=== PATIENT | male | born 1990 | race Caucasian/White ===

== ENCOUNTER 2016-12-21 21:19 | Emergency (ER) | payer SELFPAY ==
[~2016-12-21] VITALS: Ht 188 cm; Wt 128.4 kg
[~2016-12-21 21:19] MED LIST: LISI-556 PO
[2016-12-21] MEDS ORDERED: KETOROLAC 30 MG/ML VIAL IVP STA (22:31)
[2016-12-21] MEDS ORDERED: LACTATED RINGERS 1,000 ML IV ONE (22:31)
[2016-12-21 22:33] LABS: BILIRUBIN,URINE NEGATIVE (NEGATIVE); KETONES,URINE NEGATIVE (NEGATIVE); LEUKOCYTE ESTERASE ,URINE 1+ (NEGATIVE); NITRITE,URINE NEGATIVE (NEGATIVE); PH,URINE 5 (5-9); PROTEIN,URINE 2+ (NEGATIVE); UROBILINOGEN,URINE NORMAL (NORMAL)
[2016-12-21 22:44] LABS: WBC,URINE 0-2 /HPF
[2016-12-21] MEDS ORDERED: ONDANSETRON 4 MG/2 ML (SDV) Z0FRAN IVP ONE (22:45)
[2016-12-21 22:47] LABS: BASOPHILS % (AUTO) 0 % (0-10); EOSINOPHILS # (AUTO) 0.2 10^3/uL (0.0-0.3); EOSINOPHILS % (AUTO) 1 % (0-10); LYMPHOCYTES # (AUTO) 3.2 X 10^3 (1.0-4.0); LYMPHOCYTES % (AUTO) 23 % (12-44); MEAN CORPUSCULAR HEMOGLOBIN 29 PG (25-34); MEAN CORPUSCULAR HGB CONC 35 G/DL (32-36); MEAN CORPUSCULAR VOLUME 84 FL (80-99); MEAN PLATELET VOLUME 11.1 FL (7.4-10.4); MONOCYTES # (AUTO) 0.9 X 10^3 (0.0-1.0); MONOCYTES % (AUTO) 6 % (0-12); NEUTROPHILS # (AUTO) 9.5 X 10^3 (1.8-7.8); NEUTROPHILS % (AUTO) 69 % (42-75); PLATELET COUNT 209 10^3/uL (130-400); RED BLOOD COUNT 5.38 10^6/uL (4.35-5.85); RED CELL DISTRIBUTION WIDTH 13.1 % (10.0-14.5); WHITE BLOOD COUNT 13.8 10^3/uL (4.3-11.0)
[2016-12-21 23:04] LABS: ALANINE AMINOTRANSFERASE 42 U/L (0-55); ALBUMIN 4.1 GM/DL (3.2-4.5); AMYLASE 46 U/L (25-125); ANION GAP 11 MMOL/L (5-14); ASPARTATE AMINO TRANSFERASE 30 U/L (5-34); BILIRUBIN,TOTAL 0.4 MG/DL (0.1-1.0); BLOOD UREA NITROGEN 10 MG/DL (7-18); BUN/CREATININE RATIO 11 (0-20); CALCIUM 9.6 MG/DL (8.5-10.1); CARBON DIOXIDE 23 MMOL/L (21-32); CHLORIDE 109 MMOL/L (98-107); CREATININE SERUM 0.87 MG/DL (0.60-1.30); GFR ESTIMATED > 60; GLUCOSE 99 MG/DL (70-105); HEMOLYSIS 7 (-100-29); ICTERUS 0.4 (-100-1.9); LIPASE 15 U/L (8-78); LIPEMIA 5 (-100-49); POTASSIUM 3.6 MMOL/L (3.6-5.0); SODIUM 143 MMOL/L (135-145); TOTAL PROTEIN 7.5 GM/DL (6.4-8.2)
[2016-12-21] MEDS ORDERED: RX-ONDANSETRON 4 MG ODT (ZOFRAN) PPK #4 PO STA (23:39)
[2016-12-21] MEDS ORDERED: TAMS0.4C98 PO (23:43)
[2016-12-21] MEDS ORDERED: HYDR-3820 PO (23:43)
[2016-12-21] MEDS ORDERED: ONDA4TAB8 PO (23:43)
[2016-12-21] MEDS ORDERED: CIPR-225 PO (23:43)
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
[2016-12-21] MEDS ORDERED: CIPROFLOXACIN 500 MG (CIPRO) TABLET PO SCH (23:45)
[2016-12-21] MEDS ORDERED: ALFUZOSIN HCL 10 MG TAB (UROXATRAL) PO SCH (23:45)
[2016-12-21] MEDS ORDERED: RX-HYDROCODONE/APAP 5/325 MG #4 TAB PK PO PRN (23:45)
[2016-12-21 23:54] VITALS: BP 124/95
--- NOTE | 2016-12-22 07:50 | Diagnostic Imaging Report ---
INDICATION: Right-sided abdominal and back pain. TECHNIQUE: Single view chest with supine and upright radiographs of the abdomen. CORRELATION STUDY: None FINDINGS: Frontal radiograph of the chest demonstrates no acute abnormality. At approximately 6 x 4 mm calcification interposed between the of right L4 and L5 transverse processes. Overlying bowel gas and stool is present may affect mild ileus pattern but without findings to suggest high degree of bowel obstruction. No difference in air-fluid levels. IMPRESSION: 1. Negative for acute cardiopulmonary abnormality. 2. Calcification along the right paraspinal region consistent with the known right ureteral stone demonstrated on followup renal colic CT. Dictated by: Dictated on workstation # [id number]
--- NOTE | 2016-12-22 07:55 | Diagnostic Imaging Report ---
PROCEDURE: CT urinary tract, rule out kidney stone. TECHNIQUE: Multiple contiguous axial images were obtained through the abdomen and pelvis without the use of intravenous contrast. INDICATION: Right lower quadrant abdominal and back pain. CORRELATION STUDY: None. FINDINGS: LOWER THORAX: Clear. LIVER: Unremarkable. GALLBLADDER: Present and unremarkable. No bile duct dilatation. SPLEEN: Unremarkable. PANCREAS: Unremarkable. ADRENAL GLANDS: Unremarkable. KIDNEYS: There is moderate severity right-sided hydroureteronephrosis owing to an approximately 6 x 6 mm stone within the right mid ureter. This is at the approximately L4 vertebral body plain. At least two punctate nonobstructing superior pole left renal calculi are present with left renal collecting system unremarkable. ABDOMINAL AORTA: Unremarkable, nonaneurysmal. GASTROINTESTINAL TRACT: No obstruction or inflammation. Normal appendix. URINARY BLADDER: Relatively decompressed and therefore not well evaluated. REPRODUCTIVE: Prostate gland appearing unremarkable. OSSEOUS STRUCTURES: Mild vertebral body endplate irregularities, few small Schmorl's nodes present. IMPRESSION: 1. Moderate right-sided hydroureteronephrosis owing to approximately 6 mm stone in the right mid ureter. 2. Punctate nonobstructing left intrarenal calculi. Dictated by: Dictated on workstation # [id number]
== END 2016-12-21 23:54 | disposition home or self-care (01) ==
LOC: EDUNIT# 21:19 → ER 21:24
DX: N13.2 Hydronephrosis with renal and ureteral calculous obstruction (principal); F17.210 Nicotine dependence, cigarettes, uncomplicated; Z87.442 Personal history of urinary calculi
CPT/HCPCS: 36415; 74022; 74176; 80053; 81000; 82150; 83690; 85025

== ENCOUNTER 2018-12-20 22:37 | Emergency (ER) | payer BC, OTHER ==
[~2018-12-20] VITALS: Ht 188 cm; Wt 140.6 kg
[~2018-12-20 22:37] MED LIST changes: +CIPR-225 PO; +HYDR-3820 PO; +ONDA4TAB8 PO; +TAMS0.4C98 PO
--- NOTE | 2018-12-20 22:46 | ED General ---
General Stated Complaint: PRESSURE ON HEAD, SOB, DIZZY History of Present Illness Date Seen by Provider: Dec 20, 2018 Time Seen by Provider: 22:45 Initial Comments Patient presenting to the emergency department for evaluation of altered gait sensation started approximately 6 PM tonight. He says he was lying down and started not feeling right with an odd disequilibrium sensation that he went to the shower and fell forward but was able to catch himself before he smacked his head. He has been feeling a pressure sensation on the right side of his head and a sensation that he cannot ambulate effectively as he feels as if he is drunk. He can control his feet but feels off balance as he has his arms out besides holding onto objects while he is walking. He denies any recent trauma or overuse and he denies any room spinning sensation. He denies sinus congestion or ear pain but says that he has some tinnitus. He says he used to have hypertension but no longer is treated for hypertension. He denies diabetes high cholesterol or smoking cigarettes. He says he chews tobacco. He is in no obvious distress but is quite hypertensive. Allergies and Home Medications Allergies Coded Allergies: No Known Drug Allergies (Unverified , 07/21/15) Home Medications Ciprofloxacin HCl 500 Mg Tablet, 500 MG PO BID Prescribed by: DOT FORREST on 12/21/162342 Hydrocodone/Acetaminophen 1 Each Tablet, 1 EACH PO Q4H Prescribed by: DOT FORREST on 12/21/162342 Ondansetron 4 Mg Tab.rapdis, 4 MG PO Q4H Prescribed by: DOT FORREST on 12/21/162342 Tamsulosin HCl 0.4 Mg Cap, 0.4 MG PO DAILY Prescribed by: DOT FORREST on 12/21/162342 Patient Home Medication List Home Medication List Reviewed: Yes Review of Systems Review of Systems Constitutional: no symptoms reported EENTM: no symptoms reported Respiratory: no symptoms reported Cardiovascular: no symptoms reported Gastrointestinal: no symptoms reported Musculoskeletal: no symptoms reported Skin: no symptoms reported Psychiatric/Neurological: Depressed, Headache All Other Systems Reviewed Negative Unless Noted: Yes Past Hnqmdou-Ieckol-Waregd Hx Patient Social History Alcohol Beverage of Choice: Rum Type Used: Cigarettes 2nd Hand Smoke Exposure: Yes Recent Foreign Travel: No Contact w/Someone Who Travel: No Recent Hopitalizations: No Immunizations Up To Date Tetanus Booster (TDap): Unknown PED Vaccines UTD: Yes Seasonal Allergies Seasonal Allergies: No Past Medical History Surgeries: Yes (jaw, ) Orthopedic, Renal Respiratory: No Cardiac: Yes Hypertension Neurological: No Reproductive Disorders: No Genitourinary: No Kidney Stones Gastrointestinal: No Musculoskeletal: No Endocrine: No HEENT: No Cancer: No Psychosocial: No Integumentary: No Blood Disorders: No Physical Exam Vital Signs Vital Signs - First Documented 12/20/18 22:55 Temp 97.8 Pulse 93 Resp 15 B/P (MAP) 173/112 (132) Pulse Ox 98 O2 Delivery Room Air Capillary Refill : Height, Weight, BMI Height: 6'2.00" Weight: 283lbs. oz. 128.216467lc; BMI Method:Stated General Appearance: No Apparent Distress, WD/WN HEENT: PERRL/EOMI, TMs Normal, Pharynx Normal Neck: Supple Respiratory: No Respiratory Distress Cardiovascular: Regular Rate, Rhythm Gastrointestinal: Non Tender, Soft Back: Normal Inspection Extremity: Normal Capillary Refill Neurologic/Psychiatric: Alert, Oriented x3, No Motor/Sensory Deficits, Abnormal Gait, Other (normal finger to nose. ) Skin: Normal Color, Warm/Dry Progress/Results/Core Measures Suspected Sepsis SIRS Temperature: Pulse: Respiratory Rate: Laboratory Tests 12/20/18 23:10: White Blood Count 9.5 Blood Pressure / Mean: Laboratory Tests 12/20/18 23:10: Creatinine 0.89, Platelet Count 207, Total Bilirubin 0.4 Results/Orders Lab Results Laboratory Tests Test 12/20/18 23:10 Range/Units White Blood Count 9.5 4.3-11.0 10^3/uL Red Blood Count 5.47 4.35-5.85 10^6/uL Hemoglobin 16.1 13.3-17.7 G/DL Hematocrit 48 40-54 % Mean Corpuscular Volume 87 80-99 FL Mean Corpuscular Hemoglobin 29 25-34 PG Mean Corpuscular Hemoglobin Concent 34 32-36 G/DL Red Cell Distribution Width 12.6 10.0-14.5 % Platelet Count 207 130-400 10^3/uL Mean Platelet Volume 10.8 H 7.4-10.4 FL Neutrophils (%) (Auto) 57 42-75 % Lymphocytes (%) (Auto) 34 12-44 % Monocytes (%) (Auto) 8 0-12 % Eosinophils (%) (Auto) 1 0-10 % Basophils (%) (Auto) 0 0-10 % Neutrophils # (Auto) 5.4 1.8-7.8 X 10^3 Lymphocytes # (Auto) 3.2 1.0-4.0 X 10^3 Monocytes # (Auto) 0.7 0.0-1.0 X 10^3 Eosinophils # (Auto) 0.1 0.0-0.3 10^3/uL Basophils # (Auto) 0.0 0.0-0.1 10^3/uL Sodium Level 142 135-145 MMOL/L Potassium Level 3.7 3.6-5.0 MMOL/L Chloride Level 104 98-107 MMOL/L Carbon Dioxide Level 25 21-32 MMOL/L Anion Gap 13 5-14 MMOL/L Blood Urea Nitrogen 10 7-18 MG/DL Creatinine 0.89 0.60-1.30 MG/DL Estimat Glomerular Filtration Rate > 60 BUN/Creatinine Ratio 11 Glucose Level 115 H 70-105 MG/DL Calcium Level 9.3 8.5-10.1 MG/DL Corrected Calcium 9.1 8.5-10.1 MG/DL Total Bilirubin 0.4 0.1-1.0 MG/DL Aspartate Amino Transf (AST/SGOT) 20 5-34 U/L Alanine Aminotransferase (ALT/SGPT) 25 0-55 U/L Alkaline Phosphatase 107 40-136 U/L Total Protein 7.5 6.4-8.2 GM/DL Albumin 4.3 3.2-4.5 GM/DL My Orders Orders - KERI HERR DO Cbc With Automated Diff (12/20/18 23:01) Comprehensive Metabolic Panel (12/20/18 23:01) Ct Head Wo (12/20/18 23:01) Meclizine Tablet (Antivert Tablet) (12/20/18 23:15) Labetalol Injection (Normodyne Injection (12/20/18 23:15) Aspirin Chewable Tablet (Baby Aspirin Ch (12/20/18 23:45) Vital Signs/I&O 12/20/18 22:55 Temp 97.8 Pulse 93 Resp 15 B/P (MAP) 173/112 (132) Pulse Ox 98 O2 Delivery Room Air Capillary Refill : Progress Note : Progress Note Patient was given meclizine and had labs and CT done. Unfortunately his altered gait has not improved. This could be a peripheral etiology to his altered gait however given his tobacco use quite elevated blood pressure cerebellar ischemia is somewhat of a concern given his intractable symptoms. Given patient has intractable symptoms and has risk factors for ischemia I recommended transfer to a facility for further neurologic workup. I spoke to Dr. AVALOS at [facility] and he says that they do not have neurology coverage and cannot accept him there. Patient is requesting transfer to [facility] as that is where his father goes. I recommended EMS transfer however patient refused. I told him he could decompensate and suffer or disability. Patient verbalized understanding and accepted these risks. Patient accepted by Dr. Gary at [facility]. Departure Impression Primary Impression: Hypertension Qualified Codes: I10 - Essential (primary) hypertension Additional Impression: Altered gait Disposition: 02 XFER SHT-TRM HOSP Condition: Unchanged Transfer Method of Transfer: Private Vehicle (patient request) Departure-Patient Inst. Referrals: NO,LOCAL PHYSICIAN (PCP/Family) Primary Care Physician KERI HERR DO Dec 20, 2018 22:46
[2018-12-20] MEDS ORDERED: MECLIZINE 25 MG (ANTIVERT) TAB PO ONE (23:15)
[2018-12-20] MEDS ORDERED: LABETALOL HCL 20 MG/4 ML VIAL IV ONE (23:15)
[2018-12-20 23:22] LABS: BASOPHILS % (AUTO) 0 % (0-10); EOSINOPHILS # (AUTO) 0.1 10^3/uL (0.0-0.3); EOSINOPHILS % (AUTO) 1 % (0-10); HEMATOCRIT 48 % (40-54); HEMOGLOBIN 16.1 G/DL (13.3-17.7); LYMPHOCYTES # (AUTO) 3.2 X 10^3 (1.0-4.0); LYMPHOCYTES % (AUTO) 34 % (12-44); MEAN CORPUSCULAR HEMOGLOBIN 29 PG (25-34); MEAN CORPUSCULAR HGB CONC 34 G/DL (32-36); MEAN CORPUSCULAR VOLUME 87 FL (80-99); MEAN PLATELET VOLUME 10.8 FL (7.4-10.4); MONOCYTES # (AUTO) 0.7 X 10^3 (0.0-1.0); MONOCYTES % (AUTO) 8 % (0-12); NEUTROPHILS # (AUTO) 5.4 X 10^3 (1.8-7.8); NEUTROPHILS % (AUTO) 57 % (42-75); PLATELET COUNT 207 10^3/uL (130-400); RED CELL DISTRIBUTION WIDTH 12.6 % (10.0-14.5); WHITE BLOOD COUNT 9.5 10^3/uL (4.3-11.0)
[2018-12-20 23:37] LABS: ALANINE AMINOTRANSFERASE 25 U/L (0-55); ALBUMIN 4.3 GM/DL (3.2-4.5); ALKALINE PHOSPHATASE 107 U/L (40-136); BILIRUBIN,TOTAL 0.4 MG/DL (0.1-1.0); BUN/CREATININE RATIO 11; CALCIUM 9.3 MG/DL (8.5-10.1); CARBON DIOXIDE 25 MMOL/L (21-32); CHLORIDE 104 MMOL/L (98-107); CREATININE SERUM 0.89 MG/DL (0.60-1.30); GFR ESTIMATED > 60; GLUCOSE 115 MG/DL (70-105); POTASSIUM 3.7 MMOL/L (3.6-5.0); SODIUM 142 MMOL/L (135-145); TOTAL PROTEIN 7.5 GM/DL (6.4-8.2)
[2018-12-20] MEDS ORDERED: ASPIRIN 81 MG CHEW (CHILDREN'S ASA) PO ONE (23:45)
[2018-12-21 00:24] VITALS: BP 140/101
--- NOTE | 2018-12-21 07:18 | Diagnostic Imaging Report ---
PROCEDURE: CT head without contrast. TECHNIQUE: Multiple contiguous axial images were obtained through the brain without the use of intravenous contrast. Auto Exposure Controls were utilized during the CT exam to meet ALARA standards for radiation dose reduction. INDICATION: Syncope, dizziness, gait change. COMPARISON: 07/21/2015 FINDINGS: There is no midline shift or mass effect. The ventricles and sulci are unremarkable. No evidence for acute intracranial hemorrhage, abnormal extra-axial fluid collections or cerebral edema is present. The basilar cisterns are unremarkable. The bony calvarium is intact. The visualized paranasal sinuses and mastoid air cells are clear. IMPRESSION: Negative appearing noncontrast CT of the head. A preliminary report was provided by [facility]. Dictated by: Dictated on workstation # [id number]
== END 2018-12-21 00:24 | disposition short-term general hospital (02) ==
LOC: EDUNIT# 22:37 → ER FS 22:38
DX: I10 Essential (primary) hypertension (principal); R26.9 Unspecified abnormalities of gait and mobility; Z87.442 Personal history of urinary calculi; Z77.22 Contact with and (suspected) exposure to environmental tobacco smoke (acute) (chronic)
CPT/HCPCS: 36415; 70450; 80053; 85025

== ENCOUNTER 2019-09-15 17:04 | Emergency (ER) | payer SELFPAY ==
[~2019-09-15] VITALS: Ht 187 cm; Wt 127.0 kg
[~2019-09-15 17:04] MED LIST changes: +ACHYD1T PO; -HYDR-3820 PO; -TAMS0.4C98 PO; +TMSL.4C PO
--- NOTE | 2019-09-15 17:36 | ED General ---
General Chief Complaint: General Problems/Pain Stated Complaint: HIGH HEART RATE/BLOOD PRESSURE Nursing Triage Note: PT REPORTS HE IS HAVING A PANIC ATTACK. sTARTED AT NOON. 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 Nursing Sepsis Screen: No Definite Risk Source of Information: Patient Exam Limitations: No Limitations History of Present Illness Date Seen by Provider: Sep 15, 2019 Time Seen by Provider: 17:28 Initial Comments Admits to multiple stressors: home and work related. 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 Admits he holds all of his stress inside and doesn't talk to many people about it. Denies SI or HI Had a moment of increased HR and panic while at work today at noon. Resolved Allergies and Home Medications Allergies Coded Allergies: No Known Drug Allergies (Unverified , 07/21/15) Home Medications Ciprofloxacin HCl 500 Mg Tablet, 500 MG PO BID Prescribed by: DOT FORREST on 12/21/162342 Hydrocodone Bit/Acetaminophen 1 Each Tablet, 1 EACH PO Q4H Prescribed by: DOT FORREST on 12/21/162342 Ondansetron 4 Mg Tab.rapdis, 4 MG PO Q4H Prescribed by: DOT FORREST on 12/21/162342 Tamsulosin HCl 0.4 Mg Cap, 0.4 MG PO DAILY Prescribed by: DOT FORREST on 12/21/162342 Patient Home Medication List Home Medication List Reviewed: Yes Review of Systems Review of Systems Constitutional: see HPI Respiratory: no symptoms reported; No short of breath Cardiovascular: see HPI; No chest pain; palpitations Gastrointestinal: no symptoms reported Psychiatric/Neurological: Anxiety; Denies Depressed, Denies Emotional Problems, Denies Headache, Denies Numbness, Denies Paresthesia, Denies Seizure, Denies Tin gling, Denies Tremors, Denies Weakness Past Ygqcwha-Lzkhev-Lhifsz Hx Past Med/Social Hx: Reviewed Nursing Past Med/Soc Hx Patient Social History Alcohol Use: Denies Use Number of Drinks Today: DD Alcohol Beverage of Choice: Rum Recreational Drug Use: No Type Used: Cigarettes, Smokeless Tobacco 2nd Hand Smoke Exposure: Yes Recent Foreign Travel: No Contact w/Someone Who Travel: No Recent Infectious Disease Expo: No Recent Hopitalizations: No Physical Abuse: No Sexual Abuse: No Mistreated: No Fear: No Immunizations Up To Date Tetanus Booster (TDap): Unknown PED Vaccines UTD: Yes Seasonal Allergies Seasonal Allergies: No Past Medical History Surgeries: Yes (jaw, ) Orthopedic, Renal Respiratory: No Cardiac: Yes Hypertension Neurological: No Reproductive Disorders: No Genitourinary: No Kidney Stones Gastrointestinal: No Musculoskeletal: Yes Endocrine: No HEENT: No Cancer: No Psychosocial: No Integumentary: No Blood Disorders: No Physical Exam Vital Signs Vital Signs - First Documented 09/15/19 09/15/19 17:14 17:44 Temp 36.6 Pulse 94 Resp 18 B/P (MAP) 147/91 (109) Pulse Ox 99 O2 Delivery Room Air Capillary Refill : Less Than 3 Seconds Height, Weight, BMI Height: 6'2.00" Weight: 310lbs. oz. 140.863739wg; 36.00 BMI Method:Stated General Appearance: No Apparent Distress, WD/WN Respiratory: Chest Non Tender, Lungs Clear, Normal Breath Sounds, No Accessory Muscle Use, No Respiratory Distress Cardiovascular: Regular Rate, Rhythm, No Edema, No Gallop, No JVD, No Murmur, Normal Peripheral Pulses Gastrointestinal: Normal Bowel Sounds, No Organomegaly, No Pulsatile Mass, Non Tender, Soft Neurologic/Psychiatric: Alert, Oriented x3, No Motor/Sensory Deficits, Normal Mood/Affect Progress/Results/Core Measures Suspected Sepsis Recent Fever Within 48 Hours: No Infection Criteria Present: None New/Unexplained Altered Menta: No Sepsis Screen: No Definite Risk SIRS Temperature: Pulse: 94 Respiratory Rate: 18 Blood Pressure 147 /91 Mean: 109 Results/Orders Vital Signs/I&O 09/15/19 09/15/19 17:14 17:44 Temp 36.6 36.6 Pulse 94 88 Resp 18 18 B/P (MAP) 147/91 (109) 132/63 Pulse Ox 99 O2 Delivery Room Air Capillary Refill : Less Than 3 Seconds Blood Pressure Mean: 109 Departure Impression Primary Impression: Stress and adjustment reaction Disposition: 01 HOME, SELF-CARE Condition: Improved Departure-Patient Inst. Decision time for Depature: 17:36 Referrals: AMANDA GONZALES MD NO,LOCAL PHYSICIAN (PCP) Primary Care Physician Patient Instructions: Adjustment Disorder ROVENSTINE,DAVID L DO Sep 15, 2019 17:36
[2019-09-15 17:44] VITALS: BP 132/63
== END 2019-09-15 17:45 | disposition home or self-care (01) ==
LOC: EDUNIT# 17:04 → ER FS 17:05
DX: F43.29 Adjustment disorder with other symptoms (principal); Z77.22 Contact with and (suspected) exposure to environmental tobacco smoke (acute) (chronic)
CPT/HCPCS: 99281

== ENCOUNTER 2020-06-10 17:25 | Emergency (ER) | payer OTHER ==
[~2020-06-10] VITALS: Ht 187.9 cm; Wt 127.0 kg
[2020-06-10] MEDS ORDERED: meTOprolol 5 MG/5 ML (LOPRESSOR) VIAL IV STA (17:42)
[2020-06-10] MEDS ORDERED: NS IV 1000 ML 1,000 ML IV SCH (17:45)
--- NOTE | 2020-06-10 17:49 | ED Cardiac General ---
History of Present Illness General Chief Complaint: Cardiac/General Problems Stated Complaint: FAST HR Nursing Triage Note: Patient reports he was lying in bed and began feeling his heart "pound" in his chest. He reports his blood pressure was high at home and at walk-in care, so he was referred to the ED. Source: patient History of Present Illness Date Seen by Provider: Jun 10, 2020 Time Seen by Provider: 17:27 Initial Comments 30 yo Male presenting with complaints of heart racing and elevated blood pressure. he states that he was just at home watching a [place] movie with his daughter. He suddenly felt his heart was racing and like it was pounding in his chest. He has had this sensation before but when he checked his blood pressure and heart rate it was elevated. He had gone to the walk-in urgent care clinic and it was elevated there is well so they told him he needed to come to the emergency department. He denies having any nausea or vomiting. He has had no headache. He has no change in his vision. He has had blood pressure problems and problems with anxiety and stress causing elevated blood pressure and heart rate in the past but usually it resolves with removing the stressors. He was seen in August for similar situation when dealing with stress and anxiety from new living situation and job but that improved with changing things around. Allergies and Home Medications Allergies Coded Allergies: No Known Drug Allergies (Unverified , 07/21/15) Home Medications Ciprofloxacin HCl 500 Mg Tablet, 500 MG PO BID Prescribed by: DOT FORREST on 12/21/162342 Hydrocodone Bit/Acetaminophen 1 Each Tablet, 1 EACH PO Q4H Prescribed by: DOT FORREST on 12/21/162342 Metoprolol Succinate 25 Mg Tab.er.24h, 25 MG PO DAILY Prescribed by: CHARLES MARTINEZ on 06/10/201943 Ondansetron 4 Mg Tab.rapdis, 4 MG PO Q4H Prescribed by: DOT FORREST on 12/21/162342 Tamsulosin HCl 0.4 Mg Cap, 0.4 MG PO DAILY Prescribed by: DOT FORREST on 12/21/162342 Patient Home Medication List Home Medication List Reviewed: Yes Review of Systems Review of Systems Constitutional: No chills, No fever EENTM: No Symptoms Reported Respiratory: No Symptoms Reported Cardiovascular: See HPI Gastrointestinal: See HPI Genitourinary: No Symptoms Reported Musculoskeletal: no symptoms reported Skin: no symptoms reported Psychiatric/Neurological: Denies Headache, Denies Numbness, Denies Paresthesia Past Uurjcjc-Bvepjo-Dxodwi Hx Past Med/Social Hx: Reviewed Nursing Past Med/Soc Hx Patient Social History Alcohol Beverage of Choice: Rum Type Used: Cigarettes, Smokeless Tobacco 2nd Hand Smoke Exposure: Yes Recent Foreign Travel: No Contact w/Someone Who Travel: No Recent Infectious Disease Expo: No Recent Hopitalizations: No Immunizations Up To Date Tetanus Booster (TDap): Unknown PED Vaccines UTD: Yes Seasonal Allergies Seasonal Allergies: No Past Medical History Surgeries: Yes (jaw, ) Orthopedic, Renal Respiratory: No Cardiac: Yes Hypertension Neurological: No Reproductive Disorders: No Genitourinary: No Kidney Stones Gastrointestinal: No Musculoskeletal: Yes Endocrine: No HEENT: No Cancer: No Psychosocial: No Integumentary: No Blood Disorders: No Physical Exam Vital Signs Vital Signs - First Documented 06/10/20 17:30 Temp 37.0 Pulse 108 Resp 18 B/P (MAP) 184/100 (128) Pulse Ox 100 O2 Delivery Room Air Capillary Refill : Less Than 3 Seconds Height, Weight, BMI Height: 6'2.00" Weight: 310lbs. oz. 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- XII Norm as Tested, Other (anxious) Skin: Normal Color, Warm/Dry Progress/Results/Core Measures Results/Orders Lab Results Laboratory Tests Test 06/10/20 17:30 06/10/20 18:28 Range/Units White Blood Count 9.4 4.3-11.0 10^3/uL Red Blood Count 5.98 H 4.35-5.85 10^6/uL Hemoglobin 17.6 13.3-17.7 G/DL Hematocrit 52 40-54 % Mean Corpuscular Volume 87 80-99 FL Mean Corpuscular Hemoglobin 29 25-34 PG Mean Corpuscular Hemoglobin Concent 34 32-36 G/DL Red Cell Distribution Width 13.5 10.0-14.5 % Platelet Count 229 130-400 10^3/uL Mean Platelet Volume 10.7 H 7.4-10.4 FL Immature Granulocyte % (Auto) 0 % Neutrophils (%) (Auto) 59 42-75 % Lymphocytes (%) (Auto) 33 12-44 % Monocytes (%) (Auto) 6 0-12 % Eosinophils (%) (Auto) 2 0-10 % Basophils (%) (Auto) 1 0-10 % Neutrophils # (Auto) 5.6 1.8-7.8 X 10^3 Lymphocytes # (Auto) 3.1 1.0-4.0 X 10^3 Monocytes # (Auto) 0.6 0.0-1.0 X 10^3 Eosinophils # (Auto) 0.1 0.0-0.3 10^3/uL Basophils # (Auto) 0.1 0.0-0.1 10^3/uL Immature Granulocyte # (Auto) 0.0 0.0-0.1 10^3/uL Prothrombin Time 12.8 12.2-14.7 SEC INR Comment 0.9 0.8-1.4 Activated Partial Thromboplast Time 27 24-35 SEC Sodium Level 142 135-145 MMOL/L Potassium Level 3.7 3.6-5.0 MMOL/L Chloride Level 107 98-107 MMOL/L Carbon Dioxide Level 24 21-32 MMOL/L Anion Gap 11 5-14 MMOL/L Blood Urea Nitrogen 11 7-18 MG/DL Creatinine 0.76 0.60-1.30 MG/DL Estimat Glomerular Filtration Rate > 60 BUN/Creatinine Ratio 14 Glucose Level 106 H 70-105 MG/DL Calcium Level 8.8 8.5-10.1 MG/DL Corrected Calcium 8.7 8.5-10.1 MG/DL Magnesium Level 1.7 1.6-2.4 MG/DL Total Bilirubin 0.2 0.1-1.0 MG/DL Aspartate Amino Transf (AST/SGOT) 21 5-34 U/L Alanine Aminotransferase (ALT/SGPT) 29 0-55 U/L Alkaline Phosphatase 106 40-136 U/L Troponin I < 0.30 <0.30 NG/ML Pro-B-Type Natriuretic Peptide < 5.0 <75.0 PG/ML Total Protein 6.7 6.4-8.2 GM/DL Albumin 4.1 3.2-4.5 GM/DL My Orders Orders - CHARLES MARTINEZ MD Cbc With Automated Diff (06/10/20:40) Magnesium (06/10/20:40) Chest 1 View Ap/Pa Only (06/10/20:40) Ekg Tracing (06/10/2040) Comprehensive Metabolic Panel (06/10/2040) Protime With Inr (06/10/20) Partial Thromboplastin Time (06/10/20) Monitor-Rhythm Ecg Trace Only (06/10/20:40) Ed Iv/Invasive Line Start (06/10/20:40) Troponin I Fs (06/10/20:40) Probnp Fs (06/10/20:) Ns Iv 1000 Ml (Sodium Chloride 0.9%) (06/10/20 17:45) Metoprolol Tartrate Injection (Lopressor (06/10/20 17:42) Vital Signs/I&O 06/10/20 17:30 Temp 37.0 Pulse 108 Resp 18 B/P (MAP) 184/100 (128) Pulse Ox 100 O2 Delivery Room Air Blood Pressure Mean: 128 Progress Progress Note #1: Progress Note check basic labs and cardiac enzymes. HR and blood pressure improving as he is calming down here in the ED. Will give 5 mg IV Metoprolol and NS 1 L bolus. Progress Note #2: Progress Note labs are all stable without any acute significant abnormality. His cardiac enzymes are normal. His chest x-ray and electrocardiogram are also normal without acute significant abnormality. His symptoms all improved with treatment here in the ED. His heart rate and blood pressure also improved with treatment here in the ED. Counseled on treatment and results. Advised that he had a low- dose pressure medication the beta bing Thursday like what we gave here may be helpful. He has an appointment to see Dr. Gonzales on June 27 so follow-up at that time would be helpful. He may also benefit from a anxiety or depression medication. Or a variety about and blood pressure medication. The beta bing medicine would help with blood pressure and palpitations bolus. Counseled on follow-up and return precautions. Initial ECG Impression Date: Jun 10, 2020 Initial ECG Impression Time: 17:27 Initial ECG Rate: 112 Initial ECG Rhythm: S.Tach Initial ECG Comparisson: No Previous ECG Available Comment sinus tachycardia with a heart rate of 112 bpm. SD interval 120 ms. QT interval 302 ms with a QTc interval 413 ms. There is no acute ST elevation. There is no prior tracing immediately available for comparison. Diagnostic Imaging Diagonstic Imaging: Xray Plain Films/CT/US/NM/MRI: chest Comments [facility] [place], [place] NAME: CHARLES FUNES [facility] REC#: [id number] PT STATUS: REG ER : 1990 PHYSICIAN: CHARLES MARTINEZ MD ADMIT DATE: 06/10/20/ER FS Draft Date of Exam:06/10/20 CHEST 1 VIEW AP/PA ONLY INDICATION: palpitations, heart pounding COMPARISON: 12/21/2016 FINDINGS: Single frontal view of the chest demonstrates normal heart size and pulmonary vascularity. The lungs are well aerated and clear. No large pleural effusion or pneumothorax is seen. The visualized osseous structures show no acute abnormalities. IMPRESSION: 1. No acute cardiopulmonary process. Dictated on workstation # [id number] Dict: 06/10/20 1823 Trans: 06/10/20 1835 [facility] [id number] Interpreted by: DAYNA JOHNSON MD Electronically signed by: Departure Impression Primary Impression: Heart palpitations Additional Impressions: Hypertension Qualified Codes: I10 - Essential (primary) hypertension Stress and adjustment reaction Disposition: 01 HOME, SELF-CARE Condition: Improved Departure-Patient Inst. Decision time for Depature: 19:44 Referrals: AMANDA GONZALES MD (PCP/Family) Primary Care Physician Patient Instructions: Palpitations (DC), High Blood Pressure (DC) Add. Discharge Instructions: Try taking the low dose blood pressure medicine and it will help with palpitations and high blood pressure. Check with Dr. Gonzales and you may also need medicine to help with stress and anxiety. Drink plenty of fluids and stay well hydrated. All discharge instructions reviewed with patient and/or family. Voiced understanding. Scripts Metoprolol Succinate (Metoprolol Succinate) 25 Mg Tab.er.24h 25 MG PO DAILY for Blood Pressure for 30 Days, #30 TAB 0 Refills Prov: CHARLES MARTINEZ MD 06/10/20 CHARLES MARTINEZ MD Jun 10, 2020 17:49
[2020-06-10 18:02] LABS: WHITE BLOOD COUNT 9.4 10^3/uL (4.3-11.0)
[2020-06-10 18:03] LABS: BASOPHILS % (AUTO) 1 % (0-10); EOSINOPHILS % (AUTO) 2 % (0-10); HEMATOCRIT 52 % (40-54); HEMOGLOBIN 17.6 G/DL (13.3-17.7); LYMPHOCYTES % (AUTO) 33 % (12-44); MEAN CORPUSCULAR HEMOGLOBIN 29 PG (25-34); MEAN CORPUSCULAR HGB CONC 34 G/DL (32-36); MEAN CORPUSCULAR VOLUME 87 FL (80-99); MEAN PLATELET VOLUME 10.7 FL (7.4-10.4); MONOCYTES % (AUTO) 6 % (0-12); NEUTROPHILS % (AUTO) 59 % (42-75); PLATELET COUNT 229 10^3/uL (130-400)
[2020-06-10 18:04] LABS: BASOPHILS # (AUTO) 0.1 10^3/uL (0.0-0.1); EOSINOPHILS # (AUTO) 0.1 10^3/uL (0.0-0.3); LYMPHOCYTES # (AUTO) 3.1 X 10^3 (1.0-4.0); MONOCYTES # (AUTO) 0.6 X 10^3 (0.0-1.0); NEUTROPHILS # (AUTO) 5.6 X 10^3 (1.8-7.8)
--- NOTE | 2020-06-10 18:35 | Diagnostic Imaging Report ---
INDICATION: palpitations, heart pounding COMPARISON: 12/21/2016 FINDINGS: Single frontal view of the chest demonstrates normal heart size and pulmonary vascularity. The lungs are well aerated and clear. No large pleural effusion or pneumothorax is seen. The visualized osseous structures show no acute abnormalities. IMPRESSION: 1. No acute cardiopulmonary process. Dictated by: Dictated on workstation # [id number]
[2020-06-10 19:01] LABS: INR 0.9 (0.8-1.4); PROTHROMBIN TIME PATIENT 12.8 SEC (12.2-14.7)
[2020-06-10 19:07] LABS: SODIUM 142 MMOL/L (135-145)
[2020-06-10 19:08] LABS: ALANINE AMINOTRANSFERASE 29 U/L (0-55); ALKALINE PHOSPHATASE 106 U/L (40-136); BILIRUBIN,TOTAL 0.2 MG/DL (0.1-1.0); BUN/CREATININE RATIO 14; CALCIUM 8.8 MG/DL (8.5-10.1); CARBON DIOXIDE 24 MMOL/L (21-32); CHLORIDE 107 MMOL/L (98-107); CREATININE SERUM 0.76 MG/DL (0.60-1.30); GFR ESTIMATED > 60; GLUCOSE 106 MG/DL (70-105); MAGNESIUM 1.7 MG/DL (1.6-2.4); POTASSIUM 3.7 MMOL/L (3.6-5.0); TOTAL PROTEIN 6.7 GM/DL (6.4-8.2)
[2020-06-10 19:10] LABS: ALBUMIN 4.1 GM/DL (3.2-4.5)
[2020-06-10] MEDS ORDERED: MTP25TSR PO (19:44)
[2020-06-10 19:53] VITALS: BP 141/86
== END 2020-06-10 19:53 | disposition home or self-care (01) ==
LOC: EDUNIT# 17:25 → ER FS 17:27
DX: R00.2 Palpitations (principal); I10 Essential (primary) hypertension; F43.22 Adjustment disorder with anxiety; Z77.22 Contact with and (suspected) exposure to environmental tobacco smoke (acute) (chronic)
CPT/HCPCS: 36415; 71045; 80053; 83735; 83880; 84484; 85025; 85610; 85730; 93005; 93041

== ENCOUNTER 2020-06-12 00:13 | Emergency (ER) | payer OTHER ==
[~2020-06-12] VITALS: Ht 188 cm; Wt 127.0 kg
[~2020-06-12 00:13] MED LIST changes: +MTP25TSR PO
[2020-06-12 00:21] VITALS: BP 142/92
--- NOTE | 2020-06-12 00:35 | ED Cardiac General ---
History of Present Illness General Chief Complaint: Cardiac/General Problems Stated Complaint: HIGH BLOOD PRESSURE Nursing Triage Note: PT AMBULATE TO ROOM FS01 WITH C/O HYPERTENSION. PT REPORTS BP OF 172/103 [employer] BL[employer]. PT SEEN IN THIS ED YESTERDAY FOR SAME C/O AND GIVEN PRESCRIPTION FOR HYPERTENSION. PT REPORTS HX OF ANXIETY. PT STATES HE THINKS HE MAY HAVE HAD A PANIC ATTACK ON THE WAY TO WORK TONIGHT. History of Present Illness Date Seen by Provider: Jun 12, 2020 Time Seen by Provider: 00:30 Initial Comments 30-year-old male presents with high blood pressure, palpitations, diaphoresis. Patient reports he was on his way to work when it happened. He thinks he possibly had a panic attack currently work. Patient was seen yesterday for same complaints and given a prescription for metoprolol. He took one yesterday morning at 8 a.m. Patient symptoms have resolved upon arrival to the ER. 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 Patient had a significant cardiac workup yesterday was negative. He does have an appointment with Dr. Gonzales on 06/27 2020. Allergies and Home Medications Allergies Coded Allergies: No Known Drug Allergies (Unverified , 07/21/15) Home Medications Ciprofloxacin HCl 500 Mg Tablet, 500 MG PO BID Prescribed by: DOT FORREST on 12/21/162342 Hydrocodone Bit/Acetaminophen 1 Each Tablet, 1 EACH PO Q4H Prescribed by: DOT FORREST on 12/21/162342 Metoprolol Succinate 25 Mg Tab.er.24h, 25 MG PO DAILY Prescribed by: CHARLES MARTINEZ on 06/10/201943 Ondansetron 4 Mg Tab.rapdis, 4 MG PO Q4H Prescribed by: DOT FORREST on 12/21/162342 Tamsulosin HCl 0.4 Mg Cap, 0.4 MG PO DAILY Prescribed by: DOT FORREST on 12/21/162342 Patient Home Medication List Home Medication List Reviewed: Yes Review of Systems Review of Systems Constitutional: see HPI, diaphoresis EENTM: No Symptoms Reported Respiratory: Denies Cough, Denies Shortness of Air Cardiovascular: See HPI, Palpitations Gastrointestinal: No Symptoms Reported Genitourinary: No Symptoms Reported Musculoskeletal: no symptoms reported Skin: no symptoms reported Psychiatric/Neurological: No Symptoms Reported Endocrine: No Symptoms Reported Hematologic/Lymphatic: No Symptoms Reported Past Jlknwyq-Iajfhd-Huwqit Hx Past Med/Social Hx: Reviewed Nursing Past Med/Soc Hx Patient Social History Alcohol Beverage of Choice: Rum Type Used: Smokeless Tobacco 2nd Hand Smoke Exposure: Yes Recent Foreign Travel: No Contact w/Someone Who Travel: No Recent Infectious Disease Expo: No Recent Hopitalizations: No Immunizations Up To Date Tetanus Booster (TDap): Unknown PED Vaccines UTD: Yes Seasonal Allergies Seasonal Allergies: No Past Medical History Surgeries: Yes (jaw, ) Orthopedic, Renal Respiratory: No Cardiac: Yes Hypertension Neurological: No Reproductive Disorders: No Genitourinary: Yes Kidney Stones Gastrointestinal: No Musculoskeletal: Yes Endocrine: No HEENT: No Cancer: No Psychosocial: No Integumentary: No Blood Disorders: No Physical Exam Vital Signs Vital Signs - First Documented 06/12/20 00:21 Temp 37.1 Pulse 81 Resp 17 B/P (MAP) 142/92 (109) O2 Delivery Room Air Capillary Refill : Less Than 3 Seconds Height, Weight, BMI Height: 6'2.00" Weight: 310lbs. oz. 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 Patient had blood pressure of systolic 149 and then 137. Patient with no symptoms at this time. Patient's description of the event are very consistent with a panic/stress reaction. I discussed with him the need to allow the metoprolol time to work for hypertension. Discussed relaxation techniques and provided him information. Recommend that if these do not work when he has an appointment with his primary care provider he should discuss possible anxiety/depression medication. Patient was stable and symptom-free upon discharge Departure Impression Primary Impression: Stress and adjustment reaction Disposition: 01 HOME, SELF-CARE Condition: Stable Departure-Patient Inst. Referrals: AMANDA GONZALES MD (PCP/Family) Primary Care Physician Patient Instructions: Anxiety, Adult (DC), Generalized Anxiety Disorder (DC), High Blood Pressure in Adults, Stress Add. Discharge Instructions: Continue current metoprolol prescription as prescribed yesterday Keep your appointment with Dr. Gonzales All discharge instructions reviewed with patient and/or family. Voiced understanding. Work/School Note: Work Release Form Date Seen in the Emergency Department: Jun 12, 2020 Return to Work: Jun 12, 2020 Restrictions: No Restrictions MELVI SLATER DO Jun 12, 2020 00:35
== END 2020-06-12 00:50 | disposition home or self-care (01) ==
LOC: EDUNIT# 00:13 → ER FS 00:16
DX: F43.20 Adjustment disorder, unspecified (principal); E66.9 Obesity, unspecified; I10 Essential (primary) hypertension; Z68.35 Body mass index [BMI] 35.0-35.9, adult; Z77.22 Contact with and (suspected) exposure to environmental tobacco smoke (acute) (chronic)
CPT/HCPCS: 99283

== ENCOUNTER → 2020-06-19 | Outpatient (CLI) | payer OTHER | LOC: LAB FS 10:37 | PROVIDERS: ATTEND Family Medicine | DX: R00.2 Palpitations (principal) | CPT/HCPCS: 36415; 84443 ==

== ENCOUNTER 2020-08-18 21:25 | Emergency (ER) | payer OTHER ==
[~2020-08-18] VITALS: Ht 177.8 cm; Wt 133.0 kg
[~2020-08-18 21:25] MED LIST changes: -LISI-556 PO; +LISI-729 PO
[2020-08-18] MEDS ORDERED: NS IV 1000 ML 1,000 ML IV STA (21:52)
--- NOTE | 2020-08-18 21:57 | ED Chest Pain ---
General Chief Complaint: Cardiac/General Problems Stated Complaint: HIGH HR Nursing Triage Note: pt states he has had palpitations for the past 2 hrs, "feels like his heart is jumping out of his chest, states he has bilateral neck stabbing pain Nursing Sepsis Screen: No Definite Risk Source: patient, old records History of Present Illness Date Seen by Provider: Aug 18, 2020 Time Seen by Provider: 21:26 Initial Comments 30-year-old male presenting with complaints of chest pain and racing heart as well as pain to bilateral sides of his posterior neck. He states that he was taking a shower when he suddenly felt like he was being stabbed in the back of both sides of his neck. He felt like his heart started to race when this happened and he became dizzy and lightheaded. He fell to his knees in the shower. He has a history of having his heart racing and is taking a beta- bing medication for it. He usually does breathing exercises and yoga to help slow his heart rate down and relax because sometimes this is also related to anxiety and panic attacks. However when symptoms were not improving after 15 to 20 minutes he told his girlfriend about it and she brought him to the emergency department. He has shortness of breath and feels like his heart is racing. He has some mild nausea with this as well. Allergies and Home Medications Allergies Coded Allergies: No Known Drug Allergies (Unverified , 07/21/15) Home Medications Ciprofloxacin HCl 500 Mg Tablet, 500 MG PO BID Prescribed by: DOT FORREST on 12/21/162342 Hydrocodone Bit/Acetaminophen 1 Each Tablet, 1 EACH PO Q4H Prescribed by: DOT FORREST on 12/21/162342 Metoprolol Succinate 25 Mg Tab.er.24h, 25 MG PO DAILY Prescribed by: CHARLES MARTINEZ on 06/10/201943 Ondansetron 4 Mg Tab.rapdis, 4 MG PO Q4H Prescribed by: DOT FORREST on 12/21/162342 Tamsulosin HCl 0.4 Mg Cap, 0.4 MG PO DAILY Prescribed by: DOT FORREST on 12/21/162342 Patient Home Medication List Home Medication List Reviewed: Yes Review of Systems Review of Systems Constitutional: No chills, No fever EENTM: No Symptoms Reported Respiratory: Shortness of Air Cardiovascular: Chest Pain, Lightheadedness, Palpitations Gastrointestinal: Nausea Genitourinary: No Symptoms Reported Musculoskeletal: see HPI, neck pain Skin: no symptoms reported; No rash Psychiatric/Neurological: Anxiety Endocrine: No Symptoms Reported Hematologic/Lymphatic: No Symptoms Reported Past Ttvuaav-Qqybki-Iqenmi Hx Past Med/Social Hx: Reviewed Nursing Past Med/Soc Hx Patient Social History Alcohol Use: Denies Use Number of Drinks Today: DD Alcohol Beverage of Choice: Rum Type Used: Smokeless Tobacco 2nd Hand Smoke Exposure: Yes Recent Infectious Disease Expo: No Recent Hopitalizations: No Immunizations Up To Date Tetanus Booster (TDap): Unknown PED Vaccines UTD: Yes Seasonal Allergies Seasonal Allergies: No Past Medical History Surgeries: Yes (jaw, ) Orthopedic, Renal Respiratory: No Cardiac: Yes Hypertension Neurological: No Reproductive Disorders: No Genitourinary: Yes Kidney Stones Gastrointestinal: No Musculoskeletal: Yes Endocrine: No HEENT: No Cancer: No Psychosocial: No Integumentary: No Blood Disorders: No Physical Exam Vital Signs Vital Signs - First Documented 08/18/20 21:42 Temp 36.7 Pulse 99 Resp 19 B/P (MAP) 152/101 (118) Pulse Ox 100 O2 Delivery Room Air Capillary Refill : Less Than 3 Seconds Height, Weight, BMI Height: 6'2.00" Weight: 310lbs. oz. 140.070315li; 42.00 BMI Method:Stated General Appearance: WD/WN, Anxious, Moderate Distress HEENT: PERRL/EOMI, Pharynx Normal Neck: Full Range of Motion, Normal Inspection, Non Tender, Supple, Other (Tend er to palpation over the trapezius muscles bilaterally) Respiratory: Chest Non Tender, Lungs Clear, Normal Breath Sounds, No Accessory Muscle Use, No Respiratory Distress Cardiovascular: Regular Rate, Rhythm, Normal Peripheral Pulses Gastrointestinal: Normal Bowel Sounds, No Pulsatile Mass, Soft Rectal: Deferred Extremity: Normal Capillary Refill, No Pedal Edema Neurologic/Psychiatric: Alert, Oriented x3, label maker II-XII Norm as Tested, Other (Anxious) Skin: Normal Color, Warm/Dry; No Rash Progress/Results/Core Measures Results/Orders Lab Results Laboratory Tests Test 08/18/20 21:50 Range/Units White Blood Count 6.8 4.3-11.0 10^3/uL Red Blood Count 5.71 4.35-5.85 10^6/uL Hemoglobin 16.8 13.3-17.7 G/DL Hematocrit 48 40-54 % Mean Corpuscular Volume 84 80-99 FL Mean Corpuscular Hemoglobin 29 25-34 PG Mean Corpuscular Hemoglobin Concent 35 32-36 G/DL Red Cell Distribution Width 12.5 10.0-14.5 % Platelet Count 246 130-400 10^3/uL Mean Platelet Volume 10.2 7.4-10.4 FL Immature Granulocyte % (Auto) 0 % Neutrophils (%) (Auto) 58 42-75 % Lymphocytes (%) (Auto) 34 12-44 % Monocytes (%) (Auto) 7 0-12 % Eosinophils (%) (Auto) 1 0-10 % Basophils (%) (Auto) 0 0-10 % Neutrophils # (Auto) 3.9 1.8-7.8 X 10^3 Lymphocytes # (Auto) 2.3 1.0-4.0 X 10^3 Monocytes # (Auto) 0.4 0.0-1.0 X 10^3 Eosinophils # (Auto) 0.1 0.0-0.3 10^3/uL Basophils # (Auto) 0.0 0.0-0.1 10^3/uL Immature Granulocyte # (Auto) 0.0 0.0-0.1 10^3/uL Prothrombin Time 14.3 12.2-14.7 SEC INR Comment 1.1 0.8-1.4 Activated Partial Thromboplast Time 28 24-35 SEC Sodium Level 139 135-145 MMOL/L Potassium Level 3.3 L 3.6-5.0 MMOL/L Chloride Level 104 98-107 MMOL/L Carbon Dioxide Level 24 21-32 MMOL/L Anion Gap 11 5-14 MMOL/L Blood Urea Nitrogen 10 7-18 MG/DL Creatinine 0.90 0.60-1.30 MG/DL Estimat Glomerular Filtration Rate > 60 BUN/Creatinine Ratio 11 Glucose Level 133 H 70-105 MG/DL Calcium Level 9.4 8.5-10.1 MG/DL Corrected Calcium 9.2 8.5-10.1 MG/DL Magnesium Level 1.9 1.6-2.4 MG/DL Total Bilirubin 0.5 0.1-1.0 MG/DL Aspartate Amino Transf (AST/SGOT) 22 5-34 U/L Alanine Aminotransferase (ALT/SGPT) 28 0-55 U/L Alkaline Phosphatase 122 40-136 U/L Troponin I < 0.30 <0.30 NG/ML Pro-B-Type Natriuretic Peptide 14.4 <75.0 PG/ML Total Protein 7.3 6.4-8.2 GM/DL Albumin 4.3 3.2-4.5 GM/DL Lipase 26 8-78 U/L My Orders Orders - CHARLES MARTINEZ MD Ekg Tracing (08/18/20 21:33) Cbc With Automated Diff (08/18/20 21:52) Magnesium (08/18/20 21:52) Chest 1 View Ap/Pa Only (08/18/20:52) Comprehensive Metabolic Panel (08/18/20:52) Protime With Inr (08/18/20:52) Partial Thromboplastin Time (08/18/20:52) Monitor-Rhythm Ecg Trace Only (08/18/20:52) Ed Iv/Invasive Line Start (08/18/20:52) Lipase (08/18/20:52) Troponin I Fs (08/18/20 21:52) Probnp Fs (08/18/20 21:52) Ns Iv 1000 Ml (Sodium Chloride 0.9%) (08/18/20 21:52) Ct Head/Cervical Spine Wo (08/18/20 21:52) Vital Signs/I&O 08/18/20 08/18/20 21:42 22:58 Temp 36.7 Pulse 99 77 Resp 19 15 B/P (MAP) 152/101 (118) 134/81 Pulse Ox 100 98 O2 Delivery Room Air Room Air 08/19/20 00:00 Intake Total 1000 ml Balance 1000 ml Blood Pressure Mean: 118 Progress Progress Note #1: Progress Note Check labs as well as electrocardiogram and chest x-ray. With him having dizziness and neck pain will obtain a CT scan of his head and cervical spine to rule out any mass or tumor or other abnormality in his neck that might be contributing to his symptoms. Progress Note #2: Progress Note labs are all stable without acute significant abnormality. ECG without acute ischemic changes. CT head and cervical spine negative for acute abnormality to account for his dizziness and tachycardia with hypertension. cardiac enzymes negative. Counseled pt to follow up with pcp and consider holter or event monitor to see about catching periods of rapid heart rate to see if having arrhythmia or other reason for his symptoms. Encouraged to continue with hydration and taking his medications as prescribed. Initial ECG Impression Date: Aug 18, 2020 Initial ECG Impression Time: 21:35 Initial ECG Rate: 100 Initial ECG Rhythm: Normal Sinus Initial ECG Comparisson: Unchanged Comment Sinus rhythm with a rate of 100 bpm. MI interval 143 ms. QT interval 332 ms with a QTc interval of 429 ms. There is no acute ST elevation. This appears similar to prior tracings in the system. Diagnostic Imaging Diagonstic Imaging: CT Plain Films/CT/US/NM/MRI: c-spine, head Comments No acute findings in the head or brain. Vertebrae unremarkable with no acute fracture. Discs and spinal canal neural foramina do not show any acute findings. There is no spinal canal stenosis. Reviewed: Reviewed Night [facility] Study Diagonstic Imaging: Xray Plain Films/CT/US/NM/MRI: chest Comments On my review of his 1 view chest x-ray is no acute infiltrate or effusion. His heart size is normal. Departure Impression Primary Impression: Heart palpitations Additional Impressions: Trapezius muscle spasm Dizziness Chest pain Qualified Codes: R07.9 - Chest pain, unspecified Disposition: 01 HOME, SELF-CARE Condition: Improved Departure-Patient Inst. Decision time for Depature: 22:51 Referrals: AMANDA GONZALES MD (PCP/Family) Primary Care Physician Patient Instructions: Muscle Spasm ED, Dizziness, Adult ED, Chest Pain, Adult ED, Palpitations Add. Discharge Instructions: Continue with your regular medicine. Call Dr. Gonzales and see if she wants to have you set up a test for Holter or E vent monitor where you would have longer monitoring of your heart beat and rhythm to see if they catch when you have fast heart rate episodes and see what is causing you to have episodes like tonight. All discharge instructions reviewed with patient and/or family. Voiced understanding. CHARLES MARTINEZ MD Aug 18, 2020 21:57
[2020-08-18 21:59] LABS: BASOPHILS % (AUTO) 0 % (0-10); EOSINOPHILS % (AUTO) 1 % (0-10); HEMATOCRIT 48 % (40-54); HEMOGLOBIN 16.8 G/DL (13.3-17.7); LYMPHOCYTES % (AUTO) 34 % (12-44); MEAN CORPUSCULAR HEMOGLOBIN 29 PG (25-34); MEAN CORPUSCULAR HGB CONC 35 G/DL (32-36); MEAN CORPUSCULAR VOLUME 84 FL (80-99); MEAN PLATELET VOLUME 10.2 FL (7.4-10.4); MONOCYTES % (AUTO) 7 % (0-12); NEUTROPHILS # (AUTO) 3.9 X 10^3 (1.8-7.8); NEUTROPHILS % (AUTO) 58 % (42-75); PLATELET COUNT 246 10^3/uL (130-400); WHITE BLOOD COUNT 6.8 10^3/uL (4.3-11.0)
[2020-08-18 22:00] LABS: EOSINOPHILS # (AUTO) 0.1 10^3/uL (0.0-0.3); LYMPHOCYTES # (AUTO) 2.3 X 10^3 (1.0-4.0); MONOCYTES # (AUTO) 0.4 X 10^3 (0.0-1.0)
[2020-08-18 22:12] LABS: INR 1.1 (0.8-1.4); PROTHROMBIN TIME PATIENT 14.3 SEC (12.2-14.7)
[2020-08-18 22:20] LABS: ALANINE AMINOTRANSFERASE 28 U/L (0-55); ALBUMIN 4.3 GM/DL (3.2-4.5); ALKALINE PHOSPHATASE 122 U/L (40-136); BILIRUBIN,TOTAL 0.5 MG/DL (0.1-1.0); BUN/CREATININE RATIO 11; CALCIUM 9.4 MG/DL (8.5-10.1); CARBON DIOXIDE 24 MMOL/L (21-32); CHLORIDE 104 MMOL/L (98-107); GFR ESTIMATED > 60; GLUCOSE 133 MG/DL (70-105); LIPASE 26 U/L (8-78); MAGNESIUM 1.9 MG/DL (1.6-2.4); POTASSIUM 3.3 MMOL/L (3.6-5.0); SODIUM 139 MMOL/L (135-145); TOTAL PROTEIN 7.3 GM/DL (6.4-8.2)
[2020-08-18 22:58] VITALS: BP 134/81
--- NOTE | 2020-08-19 07:32 | Diagnostic Imaging Report ---
PROCEDURE: CT head and CT cervical spine without contrast. TECHNIQUE: Multiple contiguous axial images were obtained through the brain and cervical spine without the use of intravenous contrast. Sagittal and coronal reformations through the cervical spine were then performed. Auto Exposure Controls were utilized during the CT exam to meet ALARA standards for radiation dose reduction. INDICATION: Dizziness. Neck pain. COMPARISON: 12/20/2018. FINDINGS: CT head: No large acute territorial ischemia, mass, or hemorrhage. No midline shift or mass effect. The ventricles, cortical sulci, and basilar cisterns are patent and unremarkable. The calvarium is intact. Retained secretions are seen in the right maxillary sinus. The mastoid air cells are clear. CT cervical spine: No acute fracture or dislocation is seen in the cervical spine. No focal osseous lesions. Vertebral body heights are well-maintained. The craniocervical junction is well-maintained. Soft tissues of the neck are unremarkable. The included lung apices are clear. IMPRESSION: 1. No hemorrhage or focal intra-axial mass. No CT evidence of large acute territorial ischemia. 2. No acute fracture or dislocation in the cervical spine. 3. Retained secretions in the right maxillary sinus. Agree with overnight report. Dictated by: Dictated on workstation # [id number]
--- NOTE | 2020-08-19 08:14 | Diagnostic Imaging Report ---
INDICATION: Chest pain EXAMINATION: Chest 08/18/2020 COMPARISON: 06/10/2020 FINDINGS: The cardiomediastinal silhouette is unremarkable. The pulmonary vasculature is within normal limits. The lungs and pleural spaces are clear. IMPRESSION: No evidence of an acute cardiopulmonary process. Dictated by: Dictated on workstation # [id number]
== END 2020-08-18 22:58 | disposition home or self-care (01) ==
LOC: EDUNIT# 21:25 → ER FS 21:28
DX: R00.2 Palpitations (principal); M62.830 Muscle spasm of back; R42 Dizziness and giddiness; R07.9 Chest pain, unspecified; F41.9 Anxiety disorder, unspecified; I10 Essential (primary) hypertension; Z77.22 Contact with and (suspected) exposure to environmental tobacco smoke (acute) (chronic)
CPT/HCPCS: 36415; 70450; 71045; 72125; 80053; 83690; 83735; 83880; 84484; 85025; 85610; 85730; 93041

== ENCOUNTER → 2020-08-29 | Outpatient (CLI) | payer SELFPAY ==
--- NOTE | 2020-08-29 10:44 | Diagnostic Imaging Report ---
EXAMINATION: CT cardiac calcium score. INDICATION: Hypertension. Routine imaging of the coronary arteries and calculation of the coronary calcium score was performed. There are no prior CT coronary calcium score exams available for comparison. The plain film examination of the chest performed on 08/18/2020 failed to show any sign of an acute cardiopulmonary abnormality. On this exam the coronary calcium score is 0.0. The CT images show the heart size is within normal limits. The aorta is not abnormally dilated. The lungs where visualized show no sign of failure, pneumonia or pleural effusion. However there is a small 7 mm noncalcified nodule in the right middle lobe (image 39 of 98). This nodular density does not have an aggressive appearance. In reviewing the previous CT abdomen/pelvis exam of 12/21/2016 this portion of the lung was not entirely included. Consequently I am not certain if it was present on the prior exam or not. Given the patient's age this is most likely a benign process. Even so, I would recommend that a short-term (6 month) follow-up CT chest exam be performed for further study. The sections through the upper abdomen failed to show any sign of an acute abnormality. The bone windows are also unremarkable for a fracture or for destructive lesion. IMPRESSION: 1. The CT cardiac calcium score is 0.0. 2. There is no acute cardiopulmonary abnormality noted. 3. The small nodular density in the right middle lobe is of uncertain etiology. Considerations and recommendations as above. Dictated by: Dictated on workstation # [id number]
== END ==
LOC: RAD FS 09:10
PROVIDERS: ATTEND Family Medicine
DX: I10 Essential (primary) hypertension (principal); R91.1 Solitary pulmonary nodule; Z82.49 Family history of ischemic heart disease and other diseases of the circulatory system
CPT/HCPCS: 75571

== ENCOUNTER → 2020-09-03 | Outpatient (CLI) | payer OTHER | LOC: CARD 09:45 | PROVIDERS: ATTEND Family Medicine | DX: I11.9 Hypertensive heart disease without heart failure (principal); Z82.49 Family history of ischemic heart disease and other diseases of the circulatory system | CPT/HCPCS: 93306 ==

== ENCOUNTER 2021-01-01 12:47 | Emergency (ER) | payer OTHER ==
[~2021-01-01] VITALS: Ht 187 cm; Wt 136.0 kg
--- NOTE | 2021-01-01 13:26 | ED Abdominal Pain ---
General Stated Complaint: ABD PAIN,DIARRHEA, N/V Source of Information: Patient Exam Limitations: No Limitations (BARI REGAN APRN) History of Present Illness Date Seen by Provider: Jan 01, 2021 Time Seen by Provider: 13:17 (BARI REGAN APRN) Initial Comments Patient is a 30-year-old male who presents to the emergency department today with a chief complaint of right upper quadrant and epigastric abdominal pain onset shortly after eating lunch which consisted of some chicken strips and some mashed potatoes. Patient states it was within about 30 minutes of his meal that he started feeling bad. He is experienced a sharp pain in the epigastric and right upper quadrant region which seem to radiate over into his left shoulder. He denies fevers or chills. He does endorse nausea. He also states that he had 3 diarrheal stools shortly after eating. He has been seeing his primary care physician, Dr. Gonzales for this abdominal pain and is getting worked up for possible gallbladder disease. Patient denies any black or bloody stools or problems with urination. No recent fevers or chills. No recent URI or Covid symptoms. All other review of systems reviewed and negative except as stated above. Timing/Duration: 1-3 Hours Severity/Quality: Severe, Cramping, Sharp Location: RUQ, Epigastric Radiation: Shoulder (Left shoulder) Activities at Onset: Other (Eating) Associated Symptoms: Denies Symptoms (DOMINIC JONES MD) Allergies and Home Medications Allergies Coded Allergies: No Known Drug Allergies (Unverified , 07/21/15) Home Medications Ciprofloxacin HCl 500 Mg Tablet, 500 MG PO BID Prescribed by: DOT FORREST on 12/21/16 2343 Dicyclomine HCl 20 Mg Tablet, 20 MG PO Q6H PRN for abdominal cramping Prescribed by: DOMINIC JONES on 01/01/21 1427 Hydrocodone Bit/Acetaminophen 1 Each Tablet, 1 EACH PO Q4H Prescribed by: DOT FORREST on 12/21/16 2343 Metoprolol Succinate 25 Mg Tab.er.24h, 25 MG PO DAILY Prescribed by: CHARLES MARTINEZ on 06/10/20 194 Ondansetron 4 Mg Tab.rapdis, 4 MG PO Q4H Prescribed by: DOT FORREST on 12/21/16 2343 Ondansetron 4 Mg Tab.rapdis, 4 MG PO Q8H PRN for nausea Prescribed by: DOMINIC JONES on 01/01/21 1427 Tamsulosin HCl 0.4 Mg Cap, 0.4 MG PO DAILY Prescribed by: DOT FORREST on 12/21/16 2343 Patient Home Medication List Home Medication List Reviewed: Yes (DOMINIC JONES MD) Review of Systems Review of Systems Constitutional: see HPI EENTM: No Symptoms Reported Respiratory: No Symptoms Reported Cardiovascular: Other (Left shoulder pain) Gastrointestinal: Abdominal Pain, Diarrhea, Nausea Genitourinary: No Symptoms Reported Musculoskeletal: no symptoms reported Skin: no symptoms reported Psychiatric/Neurological: No Symptoms Reported (DOMINIC JONES MD) All Other Systems Reviewed Negative Unless Noted: Yes (DOMINIC JONES MD) Past Ybjkdjx-Flwnqn-Rpcqyg Hx Immunizations Up To Date Tetanus Booster (TDap): Unknown PED Vaccines UTD: Yes (BARI REGAN APRN) Seasonal Allergies Seasonal Allergies: No (BARI REGAN APRN) Past Medical History Surgeries: Yes (jaw, ) Orthopedic, Renal Respiratory: No Cardiac: Yes Hypertension Neurological: No Reproductive Disorders: No Genitourinary: Yes Kidney Stones Gastrointestinal: No Musculoskeletal: Yes Endocrine: No HEENT: No Cancer: No Psychosocial: No Integumentary: No Blood Disorders: No (BARI REGAN APRN) Physical Exam Vital Signs Vital Signs - First Documented 01/01/21 13:23 Temp 36.9 Pulse 72 Resp 20 B/P (MAP) 130/85 (100) Pulse Ox 96 (DOMINIC JONES MD) Vital Signs Capillary Refill : (BARI REGAN APRN) Height/Weight/BMI Height: 6'2.00" Weight: 310lbs. oz. 140.136659dx; 42.00 BMI Method:Stated (BARI REGAN APRN) General Appearance: WD/WN, no apparent distress Neck: normal inspection Respiratory: lungs clear, normal breath sounds, no respiratory distress, no accessory muscle use Cardiovascular: regular rate, rhythm Gastrointestinal: soft, tenderness (Mild right upper quadrant and epigastric t enderness to palpation, negative Harris sign, quiet bowel sounds) Extremities: non-tender, normal inspection, no pedal edema, no calf tenderness Neurologic/Psychiatric: alert, normal mood/affect, oriented x 3 Skin: normal color, warm/dry (DOMINIC JONES MD) Progress/Results/Core Measures Results/Orders Lab Results Laboratory Tests Test 01/01/21 13:23 Range/Units White Blood Count 10.1 4.3-11.0 10^3/uL Red Blood Count 5.60 H 4.30-5.52 10^6/uL Hemoglobin 16.4 13.3-17.7 g/dL Hematocrit 48 40-54 % Mean Corpuscular Volume 86 80-99 fL Mean Corpuscular Hemoglobin 29 25-34 pg Mean Corpuscular Hemoglobin Concent 34 32-36 g/dL Red Cell Distribution Width 12.6 10.0-14.5 % Platelet Count 219 130-400 10^3/uL Mean Platelet Volume 10.8 9.0-12.2 fL Immature Granulocyte % (Auto) 0 % Neutrophils (%) (Auto) 69 42-75 % Lymphocytes (%) (Auto) 22 12-44 % Monocytes (%) (Auto) 7 0-12 % Eosinophils (%) (Auto) 1 0-10 % Basophils (%) (Auto) 0 0-10 % Neutrophils # (Auto) 7.0 1.8-7.8 10^3/uL Lymphocytes # (Auto) 2.3 1.0-4.0 10^3/uL Monocytes # (Auto) 0.7 0.0-1.0 10^3/uL Eosinophils # (Auto) 0.1 0.0-0.3 10^3/uL Basophils # (Auto) 0.0 0.0-0.1 10^3/uL Immature Granulocyte # (Auto) 0.0 0.0-0.1 10^3/uL Sodium Level 145 135-145 MMOL/L Potassium Level 4.2 3.6-5.0 MMOL/L Chloride Level 110 H 98-107 MMOL/L Carbon Dioxide Level 25 21-32 MMOL/L Anion Gap 10 5-14 MMOL/L Blood Urea Nitrogen 10 7-18 MG/DL Creatinine 0.97 0.60-1.30 MG/DL Estimat Glomerular Filtration Rate > 60 BUN/Creatinine Ratio 10 Glucose Level 89 70-105 MG/DL Calcium Level 9.4 8.5-10.1 MG/DL Corrected Calcium 9.1 8.5-10.1 MG/DL Total Bilirubin 0.6 0.1-1.0 MG/DL Aspartate Amino Transf (AST/SGOT) 22 5-34 U/L Alanine Aminotransferase (ALT/SGPT) 23 0-55 U/L Alkaline Phosphatase 105 40-136 U/L Total Protein 7.6 6.4-8.2 GM/DL Albumin 4.4 3.2-4.5 GM/DL Lipase 16 8-78 U/L (DOMINIC JONES MD) My Orders Orders - DOMINIC JONES MD Dicyclomine Injection (Bentyl Injection) (01/01/21 13:29) Ondansetron Injection (Zofran Injectio (01/01/21 13:30) (DOMINIC JONES MD) Medications Given in ED Current Medications Medications Dose Ordered Sig/Komal Route Start Time Stop Time Status Last Admin Dose Admin Ondansetron HCl 8 mg ONCE ONCE IVP 01/01/21 13:30 01/01/21 13:31 DC 01/01/21 13:38 8 MG (DOMINIC JONES MD) Vital Signs/I&O 01/01/21 13:23 Temp 36.9 Pulse 72 Resp 20 B/P (MAP) 130/85 (100) Pulse Ox 96 (DOMINIC JONES MD) Progress Progress Note : Time: 14:24 Progress Note Patient reexamined after Zofran and Bentyl. He states he feels much better. We will send prescriptions of these medications to his pharmacy, [facility] in [place]. Patient is advised to follow-up with Dr. Gonzales his primary care physician. He is given good return precautions. He verbalized understanding all questions are sought and answered. Patient is stable for discharge. (DOMINIC JONES MD) Departure Impression Primary Impression: Abdominal pain Qualified Codes: R10.11 - Right upper quadrant pain Disposition: 01 HOME, SELF-CARE Condition: Improved Departure-Patient Inst. Decision time for Depature: 14:25 (DOMINIC JONES MD) Referrals: AMANDA GONZALES MD (PCP/Family) Primary Care Physician Patient Instructions: Gallbladder Diet Add. Discharge Instructions: Drink plenty of fluids to stay well-hydrated. Take the Bentyl 30 minutes before meals and one at night before bed. I have also sent a prescription for Zofran, and nausea medication to your pharmacy. You can take this every 8 hours as needed for upset stomach. Come back to the emergency room for any worsening abdominal pain especially associated with fever, vomiting or any other emergent concerning symptoms that develop. 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 No involvement in patient care during this visit. 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
[2021-01-01] MEDS ORDERED: DICYCLOMINE 10 MG/ML (BENTYL) 2 ML AMP IM STA (13:29)
[2021-01-01] MEDS ORDERED: ONDANSETRON 4 MG/2 ML (SDV) Z0FRAN IVP ONE (13:30)
[2021-01-01 13:32] LABS: BASOPHILS % (AUTO) 0 % (0-10); EOSINOPHILS # (AUTO) 0.1 10^3/uL (0.0-0.3); EOSINOPHILS % (AUTO) 1 % (0-10); HEMATOCRIT 48 % (40-54); HEMOGLOBIN 16.4 g/dL (13.3-17.7); LYMPHOCYTES # (AUTO) 2.3 10^3/uL (1.0-4.0); LYMPHOCYTES % (AUTO) 22 % (12-44); MEAN CORPUSCULAR HEMOGLOBIN 29 pg (25-34); MEAN CORPUSCULAR HGB CONC 34 g/dL (32-36); MEAN CORPUSCULAR VOLUME 86 fL (80-99); MEAN PLATELET VOLUME 10.8 fL (9.0-12.2); MONOCYTES # (AUTO) 0.7 10^3/uL (0.0-1.0); MONOCYTES % (AUTO) 7 % (0-12); NEUTROPHILS % (AUTO) 69 % (42-75); PLATELET COUNT 219 10^3/uL (130-400); WHITE BLOOD COUNT 10.1 10^3/uL (4.3-11.0)
[2021-01-01 13:48] LABS: ALBUMIN 4.4 GM/DL (3.2-4.5)
[2021-01-01 13:49] LABS: CHLORIDE 110 MMOL/L (98-107); POTASSIUM 4.2 MMOL/L (3.6-5.0); SODIUM 145 MMOL/L (135-145)
[2021-01-01 13:50] LABS: CALCIUM 9.4 MG/DL (8.5-10.1)
[2021-01-01 13:51] LABS: GLUCOSE 89 MG/DL (70-105); TOTAL PROTEIN 7.6 GM/DL (6.4-8.2)
[2021-01-01 13:52] LABS: CARBON DIOXIDE 25 MMOL/L (21-32)
[2021-01-01 13:53] LABS: BILIRUBIN,TOTAL 0.6 MG/DL (0.1-1.0)
[2021-01-01 13:54] LABS: ALKALINE PHOSPHATASE 105 U/L (40-136)
[2021-01-01 13:55] LABS: CREATININE SERUM 0.97 MG/DL (0.60-1.30); GFR ESTIMATED > 60
[2021-01-01 13:56] LABS: BUN/CREATININE RATIO 10
[2021-01-01 13:57] LABS: ALANINE AMINOTRANSFERASE 23 U/L (0-55)
[2021-01-01 13:58] LABS: LIPASE 16 U/L (8-78)
[2021-01-01] MEDS ORDERED: DICY20TA10 PO (14:27)
[2021-01-01] MEDS ORDERED: ONDA4TAB11 PO (14:27)
[2021-01-01 14:45] VITALS: BP 130/85
== END 2021-01-01 18:37 | disposition home or self-care (01) ==
LOC: EDUNIT# 12:47 → ER 12:49
DX: R10.13 Epigastric pain (principal); I10 Essential (primary) hypertension
CPT/HCPCS: 36415; 80053; 83690; 85025

== ENCOUNTER 2021-03-18 20:28 | Emergency (ER) | payer OTHER ==
[~2021-03-18] VITALS: Ht 187.9 cm; Wt 137.1 kg
[~2021-03-18 20:28] MED LIST changes: +DICY20TA10 PO; +ONDA4TAB11 PO
[2021-03-18 21:26] LABS: BASOPHILS % (AUTO) 0 % (0-10); EOSINOPHILS # (AUTO) 0.1 10^3/uL (0.0-0.3); EOSINOPHILS % (AUTO) 1 % (0-10); HEMATOCRIT 49 % (40-54); HEMOGLOBIN 17.1 g/dL (13.3-17.7); LYMPHOCYTES # (AUTO) 3.5 10^3/uL (1.0-4.0); LYMPHOCYTES % (AUTO) 36 % (12-44); MEAN CORPUSCULAR HEMOGLOBIN 30 pg (25-34); MEAN CORPUSCULAR HGB CONC 35 g/dL (32-36); MEAN CORPUSCULAR VOLUME 87 fL (80-99); MEAN PLATELET VOLUME 10.9 fL (9.0-12.2); MONOCYTES # (AUTO) 0.6 10^3/uL (0.0-1.0); MONOCYTES % (AUTO) 7 % (0-12); NEUTROPHILS # (AUTO) 5.3 10^3/uL (1.8-7.8); NEUTROPHILS % (AUTO) 56 % (42-75); PLATELET COUNT 221 10^3/uL (130-400); WHITE BLOOD COUNT 9.6 10^3/uL (4.3-11.0)
[2021-03-18 21:30] LABS: ALBUMIN 4.4 GM/DL (3.2-4.5); POTASSIUM 3.8 MMOL/L (3.6-5.0)
[2021-03-18 21:31] LABS: CALCIUM 9.7 MG/DL (8.5-10.1)
[2021-03-18 21:32] LABS: INR 0.9 (0.8-1.4); PROTHROMBIN TIME PATIENT 12.6 SEC (12.2-14.7); TOTAL PROTEIN 7.8 GM/DL (6.4-8.2)
[2021-03-18 21:34] LABS: BILIRUBIN,TOTAL 0.4 MG/DL (0.1-1.0)
[2021-03-18 21:36] LABS: CREATININE SERUM 0.91 MG/DL (0.60-1.30)
[2021-03-18 21:38] LABS: MAGNESIUM 1.9 MG/DL (1.6-2.4)
[2021-03-18 21:40] LABS: LIPASE 20 U/L (8-78)
[2021-03-18] MEDS ORDERED: DICY20TA10 PO (21:56)
--- NOTE | 2021-03-18 21:57 | ED Abdominal Pain ---
General Chief Complaint: Chest Pain Stated Complaint: CP/ABD PAIN/HX OF GALBLADDER ISSUES Nursing Triage Note: PAIN IN CHES TASTARTED AROUND 1500. CHEESBURGER AND 30 MIN ALTER BEGAN HAVING PAIN IN MID CHEST WRAPPING AROUND TO THE RIGHT UNDER RIBS. DESCRIBES SQUEEZING PAIN IN MID CHEST. Source of Information: Patient Exam Limitations: No Limitations (BARI REGAN APRN) History of Present Illness Date Seen by Provider: Mar 18, 2021 Time Seen by Provider: 21:36 Initial Comments This is a 31-year-old male who presented to the ER with complaints of right upper quadrant abdominal pain and midsternal chest pain. States he has history of "bad gallbladder" and he ran out of his dicyclomine 3 weeks ago. His pain started this afternoon around 1500 right after he ate a cheeseburger. States pain is same as prior gallbladder attacks and he has not been following his diet appropriately. He was to follow up with Dr. Gonzales but states his appointment keeps getting cancelled. Pain starts in lower part of his chest and radiates into his back and right upper quadrant. Describes as "squeezing sensation". No fever, chills, diaphoresis, nausea, vomiting, shortness of breath, cough. (BARI REGAN APRN) Allergies and Home Medications Allergies Coded Allergies: No Known Drug Allergies (Unverified , 07/21/15) Patient Home Medication List Home Medication List Reviewed: Yes (BARI REGAN APRN) Ciprofloxacin HCl (Cipro) 500 Mg Tablet, 500 MG PO BID Prescribed by: DOT FORREST on 12/21/16 2343 Dicyclomine HCl (Dicyclomine HCl) 20 Mg Tablet, 20 MG PO Q6H PRN for abdominal cramping Prescribed by: DOMINIC JONES on 01/01/21 1427 Dicyclomine HCl (Dicyclomine HCl) 20 Mg Tablet, 20 MG PO Q6H PRN for PAIN-MILD (1-4) Prescribed by: BARI REGAN on 03/18/21 2156 Hydrocodone Bit/Acetaminophen (HYDROcodone/APAP 10/325 TABLET) 1 Each Tablet, 1 EACH PO Q4H Prescribed by: DOT FORREST on 12/21/16 2343 Metoprolol Succinate (Metoprolol Succinate) 25 Mg Tab.er.24h, 25 MG PO DAILY Prescribed by: CHARLES MARTINEZ on 06/10/201943 Ondansetron (Zofran Odt) 4 Mg Tab.rapdis, 4 MG PO Q4H Prescribed by: DOT FORREST on 12/21/16 2343 Ondansetron (Ondansetron Odt) 4 Mg Tab.rapdis, 4 MG PO Q8H PRN for nausea Prescribed by: DOMINIC JONES on 01/01/21 1427 Tamsulosin HCl (Flomax) 0.4 Mg Cap, 0.4 MG PO DAILY Prescribed by: DOT FORREST on 12/21/16 2343 Review of Systems Review of Systems Constitutional: no symptoms reported EENTM: No Symptoms Reported Respiratory: No Symptoms Reported Cardiovascular: See HPI Gastrointestinal: See HPI Genitourinary: No Symptoms Reported Musculoskeletal: no symptoms reported Skin: no symptoms reported Psychiatric/Neurological: No Symptoms Reported Endocrine: No Symptoms Reported Hematologic/Lymphatic: No Symptoms Reported (BARI REGAN APRN) Past Ttzvxtc-Svehfz-Gebefl Hx Patient Social History Tobacco Use?: No Smokeless Tobacco Frequency: Current Everyday User Use of E-Cig and/or Vaping dev: No Substance use?: No Alcohol Use?: Yes Alcohol Frequency: Once in a while Pt feels they are or have been: No (BARI REGAN APRN) Immunizations Up To Date Tetanus Booster (TDap): Unknown PED Vaccines UTD: Yes Influenza Vaccine Up-to-Date: Yes; Up-to-Date (BARI REGAN APRN) Seasonal Allergies Seasonal Allergies: No (BARI REGAN APRN) Past Medical History Surgeries: Yes (jaw, ) Orthopedic, Renal Respiratory: No Cardiac: Yes Hypertension Neurological: No Reproductive Disorders: No Genitourinary: Yes Kidney Stones Gastrointestinal: No Musculoskeletal: Yes Endocrine: No HEENT: No Cancer: No Psychosocial: No Integumentary: No Blood Disorders: No (BARI REGAN APRN) Physical Exam Vital Signs Vital Signs - First Documented 03/18/21 20:51 Temp 36.3 Pulse 90 Resp 16 B/P (MAP) 181/102 (128) Pulse Ox 98 (GAVI WADE MD) Vital Signs Capillary Refill : Less Than 3 Seconds (BARI REGAN APRN) Height/Weight/BMI Height: 6'2.00" Weight: 310lbs. oz. 140.412781ax; 38.00 BMI Method:Stated General Appearance: WD/WN, no apparent distress HEENT: PERRL/EOMI, normal ENT inspection, pharynx normal Neck: full range of motion, normal inspection Respiratory: lungs clear, normal breath sounds, no respiratory distress, no accessory muscle use Cardiovascular: regular rate, rhythm, no edema, no gallop, no murmur; No extra beats, No friction rub Peripheral Pulses: 2+ Radial Pulses (R), 2+ Radial Pulses (L) Gastrointestinal: normal bowel sounds, soft, no organomegaly; No distended; other (RUQ tenderness, pos palm ) Extremities: normal range of motion, non-tender, normal inspection Back: normal inspection Neurologic/Psychiatric: alert, normal mood/affect, oriented x 3 Skin: normal color, warm/dry (BARI REGAN APRN) Progress/Results/Core Measures Results/Orders Lab Results Laboratory Tests Test 03/18/21 20:54 Range/Units White Blood Count 9.6 4.3-11.0 10^3/uL Red Blood Count 5.64 H 4.30-5.52 10^6/uL Hemoglobin 17.1 13.3-17.7 g/dL Hematocrit 49 40-54 % Mean Corpuscular Volume 87 80-99 fL Mean Corpuscular Hemoglobin 30 25-34 pg Mean Corpuscular Hemoglobin Concent 35 32-36 g/dL Red Cell Distribution Width 12.7 10.0-14.5 % Platelet Count 221 130-400 10^3/uL Mean Platelet Volume 10.9 9.0-12.2 fL Immature Granulocyte % (Auto) 0 % Neutrophils (%) (Auto) 56 42-75 % Lymphocytes (%) (Auto) 36 12-44 % Monocytes (%) (Auto) 7 0-12 % Eosinophils (%) (Auto) 1 0-10 % Basophils (%) (Auto) 0 0-10 % Neutrophils # (Auto) 5.3 1.8-7.8 10^3/uL Lymphocytes # (Auto) 3.5 1.0-4.0 10^3/uL Monocytes # (Auto) 0.6 0.0-1.0 10^3/uL Eosinophils # (Auto) 0.1 0.0-0.3 10^3/uL Basophils # (Auto) 0.0 0.0-0.1 10^3/uL Immature Granulocyte # (Auto) 0.0 0.0-0.1 10^3/uL Prothrombin Time 12.6 12.2-14.7 SEC INR Comment 0.9 0.8-1.4 Activated Partial Thromboplast Time 28 24-35 SEC Sodium Level 143 135-145 MMOL/L Potassium Level 3.8 3.6-5.0 MMOL/L Chloride Level 107 98-107 MMOL/L Carbon Dioxide Level 23 21-32 MMOL/L Anion Gap 13 5-14 MMOL/L Blood Urea Nitrogen 8 7-18 MG/DL Creatinine 0.91 0.60-1.30 MG/DL Estimat Glomerular Filtration Rate 97 BUN/Creatinine Ratio 9 Glucose Level 97 70-105 MG/DL Calcium Level 9.7 8.5-10.1 MG/DL Corrected Calcium 9.4 8.5-10.1 MG/DL Magnesium Level 1.9 1.6-2.4 MG/DL Total Bilirubin 0.4 0.1-1.0 MG/DL Aspartate Amino Transf (AST/SGOT) 23 5-34 U/L Alanine Aminotransferase (ALT/SGPT) 31 0-55 U/L Alkaline Phosphatase 94 40-136 U/L Myoglobin 25.1 10.0-92.0 NG/ML Troponin I < 0.028 <0.028 NG/ML C-Reactive Protein High Sensitivity 0.33 0.00-0.50 MG/DL Total Protein 7.8 6.4-8.2 GM/DL Albumin 4.4 3.2-4.5 GM/DL Lipase 20 8-78 U/L (GAVI WADE MD) My Orders Orders - GAVI WADE MD Lipase (03/18/21 21:14) Ed Iv/Invasive Line Start (03/18/21 21:14) Cbc With Automated Diff (03/18/21 21:14) Magnesium (03/18/21 21:14) Chest 1 View, Ap/Pa Only (03/18/21 21:14) Ekg Tracing (03/18/21 21:14) Comprehensive Metabolic Panel (03/18/21 21:14) Myoglobin Serum (03/18/21 21:14) Protime With Inr (03/18/21 21:14) Partial Thromboplastin Time (03/18/21 21:14) O2 (03/18/21 21:14) Monitor-Rhythm Ecg Trace Only (03/18/21 21:14) Ed Iv/Invasive Line Start (03/18/21 21:14) Troponin I (03/18/21 21:14) (GAVI WADE MD) Vital Signs/I&O 03/18/21 03/18/21 20:51 23:24 Temp 36.3 Pulse 90 62 Resp 16 15 B/P (MAP) 181/102 (128) 138/94 Pulse Ox 98 98 (GAVI WADE MD) Blood Pressure Mean: 128 Progress Progress Note : Progress Note Labs and EKG reviewed. No ST elevation or depression. No elevation in cardiac markers. Given Dicyclomine inj for gallbladder colic. Will give RX and advise diet modifications for symptom relief. He is to follow up with his PCP for further evaluation as previously directed. Discharge POC reviewed and he is agreeable with plan. (BARI REGAN APRN) Initial ECG Impression Date: Mar 18, 2021 Initial ECG Impression Time: 20:58 Initial ECG Rate: 89 Initial ECG Rhythm: Normal Sinus Initial ECG Intervals: Normal Initial ECG Impression: Normal Initial ECG Comparisson: Unchanged (BARI REGAN APRN) Diagnostic Imaging Diagonstic Imaging: Xray Plain Films/CT/US/NM/MRI: chest Comments [facility], [place], [place] NAME: CHARLES FUNES Magalys [facility] REC#: [id number] PT STATUS: REG ER : 1990 PHYSICIAN: GAVI WADE MD ADMIT DATE: 03/18/21/ER Draft Date of Exam:03/18/21 CHEST 1 VIEW, AP/PA ONLY INDICATION: Chest pain AP view of the chest is obtained with comparison made to study of 08/18/2020. FINDINGS: Heart size and pulmonary vascularity are within normal limits, and the lungs are clear, bilaterally. IMPRESSION: Unremarkable chest. Dictated on workstation # [id number] Dict: 03/18/21 2257 Trans: 03/18/21 2259 [facility] [id number] Interpreted by: PIA SMITH MD Electronically signed by: Reviewed: Reviewed by Me (BARI REGAN APRN) Departure Impression Primary Impression: Gallbladder colic Disposition: 01 HOME, SELF-CARE Condition: Improved Departure-Patient Inst. Decision time for Depature: 21:54 (BARI REGAN APRN) Referrals: AMANDA GONZALES MD (PCP/Family) Primary Care Physician Patient Instructions: Gallbladder Diet Add. Discharge Instructions: Plan: 1. Low fat diet. Avoid alcohol, fatty, greasy foods. 2. Have close follow up with your primary care provider to schedule imaging of your gallbladder. 3. Take Dicyclomine every 6 hours as directed for pain. 4. Return for any new, concerning, or worsening symptoms. All discharge instructions reviewed with patient and/or family. Voiced understanding. Scripts Dicyclomine HCl (Dicyclomine HCl) 20 Mg Tablet 20 MG PO Q6H PRN for PAIN-MILD (1-4), #30 TAB 0 Refills Prov: BARI REGAN APRN 03/18/21 ATTENDING PHYSICIAN NOTE: I was physically present as attending physician in the emergency department during the care of this patient. I reviewed the EKG for this patient. I also entered the original orders after receiving triage information from nursing staff, but I was not otherwise directly involved in the decision making or delivery of care for this patient. (GAVI WADE MD) BARI REGAN APRN Mar 18, 2021 21:57 GAVI WADE MD Mar 20, 2021 07:22
[2021-03-18] MEDS ORDERED: DICYCLOMINE 10 MG/ML (BENTYL) 2 ML AMP IM ONE (22:00)
--- NOTE | 2021-03-18 22:59 | Diagnostic Imaging Report ---
INDICATION: Chest pain AP view of the chest is obtained with comparison made to study of 08/18/2020. FINDINGS: Heart size and pulmonary vascularity are within normal limits, and the lungs are clear, bilaterally. IMPRESSION: Unremarkable chest. Dictated by: Dictated on workstation # [id number]
[2021-03-18 23:24] VITALS: BP 138/94
== END 2021-03-18 23:23 | disposition home or self-care (01) ==
LOC: EDUNIT# 20:28 → ER 20:31
DX: K80.20 Calculus of gallbladder without cholecystitis without obstruction (principal); R07.9 Chest pain, unspecified; I10 Essential (primary) hypertension; F17.200 Nicotine dependence, unspecified, uncomplicated; Z79.899 Other long term (current) drug therapy
CPT/HCPCS: 36415; 71045; 80053; 83690; 83735; 83874; 84484; 85025; 85610; 85730; 86141; 93005; 93041

== ENCOUNTER 2021-04-26 23:29 | Emergency (ER) | payer OTHER ==
[~2021-04-26] VITALS: Ht 187 cm; Wt 130.0 kg
[2021-04-27] MEDS ORDERED: ASPIRIN 81 MG CHEW (CHILDREN'S ASA) PO ONE
[2021-04-27 00:02] LABS: BILIRUBIN,URINE NEGATIVE (NEGATIVE); CLARITY,URINE CLEAR; COLOR,URINE YELLOW; GLUCOSE, URINE (UA) NEGATIVE (NEGATIVE); KETONES,URINE NEGATIVE (NEGATIVE); LEUKOCYTE ESTERASE ,URINE NEGATIVE (NEGATIVE); NITRITE,URINE NEGATIVE (NEGATIVE); PH,URINE 6.5 (5-9); PROTEIN,URINE NEGATIVE (NEGATIVE)
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
[2021-04-27 00:07] LABS: BASOPHILS % (AUTO) 0 % (0-10); EOSINOPHILS # (AUTO) 0.1 10^3/uL (0.0-0.3); EOSINOPHILS % (AUTO) 1 % (0-10); HEMATOCRIT 47 % (40-54); HEMOGLOBIN 16.3 g/dL (13.3-17.7); LYMPHOCYTES # (AUTO) 2.9 10^3/uL (1.0-4.0); LYMPHOCYTES % (AUTO) 31 % (12-44); MEAN CORPUSCULAR HEMOGLOBIN 30 pg (25-34); MEAN CORPUSCULAR HGB CONC 35 g/dL (32-36); MEAN CORPUSCULAR VOLUME 87 fL (80-99); MEAN PLATELET VOLUME 10.9 fL (9.0-12.2); MONOCYTES # (AUTO) 0.8 10^3/uL (0.0-1.0); MONOCYTES % (AUTO) 8 % (0-12); NEUTROPHILS # (AUTO) 5.8 10^3/uL (1.8-7.8); NEUTROPHILS % (AUTO) 60 % (42-75); PLATELET COUNT 217 10^3/uL (130-400); WHITE BLOOD COUNT 9.6 10^3/uL (4.3-11.0)
[2021-04-27 00:13] LABS: BACTERIA,URINE NEGATIVE /HPF; SQUAMOUS EPITHELIAL CELL,UR RARE /HPF
[2021-04-27 00:17] LABS: ALBUMIN 4.3 GM/DL (3.2-4.5)
[2021-04-27 00:18] LABS: CHLORIDE 106 MMOL/L (98-107); POTASSIUM 3.9 MMOL/L (3.6-5.0); SODIUM 140 MMOL/L (135-145)
[2021-04-27 00:19] LABS: AMYLASE 42 U/L (25-125)
[2021-04-27 00:19] LABS: AMPHETAMINE SCREEN, URINE NEGATIVE (NEGATIVE); BARBITURATE SCREEN URINE NEGATIVE (NEGATIVE); BENZODIAZEPINES SCREEN URINE NEGATIVE (NEGATIVE); CANNABINOID SCREEN, URINE NEGATIVE (NEGATIVE); COCAINE SCREEN URINE NEGATIVE (NEGATIVE); METHADONE STAT NEGATIVE (NEGATIVE); METHAMPHETAMINE SCREEN URINE S NEGATIVE (NEGATIVE); OPIATE SCREEN URINE NEGATIVE (NEGATIVE); OXYCODONE STAT NEGATIVE (NEGATIVE); PROPOXYPHENE STAT NEGATIVE (NEGATIVE); TRICYCLIC ANTIDEPRESSANTS SCRE NEGATIVE (NEGATIVE)
[2021-04-27 00:20] LABS: GLUCOSE 103 MG/DL (70-105); TOTAL PROTEIN 7.4 GM/DL (6.4-8.2)
[2021-04-27 00:21] LABS: CARBON DIOXIDE 24 MMOL/L (21-32)
[2021-04-27 00:22] LABS: BILIRUBIN,TOTAL 0.5 MG/DL (0.1-1.0)
[2021-04-27 00:24] LABS: ALKALINE PHOSPHATASE 97 U/L (40-136); CREATININE SERUM 0.83 MG/DL (0.60-1.30); GFR ESTIMATED 108
[2021-04-27 00:25] LABS: BUN/CREATININE RATIO 12; FIBRIN DEGRADATION PRODUCTS 0.29 UG/ML (0.00-0.49); INR 0.9 (0.8-1.4); PROTHROMBIN TIME PATIENT 12.9 SEC (12.2-14.7)
[2021-04-27 00:27] LABS: ALANINE AMINOTRANSFERASE 30 U/L (0-55); MAGNESIUM 1.9 MG/DL (1.6-2.4)
[2021-04-27 00:28] LABS: CREATINE KINASE 104 U/L (30-200); LIPASE 20 U/L (8-78)
[2021-04-27 00:34] LABS: CREATINE KINASE MB 0.6 NG/ML (<6.6)
[2021-04-27] MEDS ORDERED: RX-CYCLOBENZAPRINE 10 MG (FLEXERIL) TAB PPK#3 PO STA (00:41)
[2021-04-27] MEDS ORDERED: CYCL10TA9 PO (00:44)
[2021-04-27] MEDS ORDERED: NAPR500T8 PO (00:44)
[2021-04-27] MEDS ORDERED: KETOROLAC 30 MG/ML VIAL IVP ONE (00:45)
[2021-04-27 00:56] VITALS: BP 154/89
--- NOTE | 2021-04-27 06:18 | Diagnostic Imaging Report ---
PATIENT HISTORY: Chest pain. TECHNIQUE: Single frontal view of the chest. COMPARISON: 03/18/2021 FINDINGS: The lung volumes are normal. No focal consolidation is seen. No large pleural effusion or pneumothorax is seen. The cardiomediastinal silhouette is normal in size and contour. No acute osseous abnormality is seen. IMPRESSION: No acute pulmonary abnormality seen. Dictated by: Dictated on workstation # [id number]
== END 2021-04-27 00:48 | disposition home or self-care (01) ==
LOC: EDUNIT# 23:29 → ER 23:31
DX: M79.18 Myalgia, other site (principal); I10 Essential (primary) hypertension; F17.290 Nicotine dependence, other tobacco product, uncomplicated
CPT/HCPCS: 71045; 80053; 80306; 81000; 82150; 82550; 82553; 83690; 83735; 83874; 83880; 84484; 85025; 85379; 85610; 85730; 93005; 93041; 99284; G0480; 36415; 80320

== ENCOUNTER → 2021-05-31 | Outpatient (CLI) | payer OTHER ==
[~2021-05-31] MED LIST changes: +CATHETER FLUSH 10 ML SYR IV PRN; +CYCL10TA25 PO; +DICY20TA PO; -DICY20TA10 PO; +HOLD METFORMIN - RECEIVED CONTRAST 20 ML VIAL IV SCH; +IOHEXOL 350 MG/ML 100 ML (OMNIPAQUE 350) VIAL IV ONE; -LISI-729 PO; +LISI5TAB20 PO; +NAPR500T8 PO; +NS 100 ML (IVPB) BAG IV ONE
--- NOTE | 2021-05-31 15:50 | Diagnostic Imaging Report ---
INDICATION: Left shoulder pain. TIME OF EXAM: 1:18 PM 3 views of the left shoulder were obtained. The glenohumeral and acromioclavicular alignment are normal. Acromial humeral space is normal. No fracture or dislocation is identified. IMPRESSION: No acute bony abnormality is detected. Dictated by: Dictated on workstation # [id number]
--- NOTE | 2021-05-31 15:53 | Diagnostic Imaging Report ---
INDICATION: Neck pain. TIME OF EXAM: 1:14 PM 4 views of the cervical spine were obtained. There is some straightening of the normal cervical lordotic curvature. Vertebral body heights and disc spaces are well maintained. Prevertebral tissues are normal. No fractures are seen. Odontoid is intact. IMPRESSION: No acute bony abnormality is detected. Dictated by: Dictated on workstation # [id number]
--- NOTE | 2021-05-31 16:07 | Diagnostic Imaging Report ---
PROCEDURE: CT chest with contrast only. TECHNIQUE: Multiple contiguous axial images were obtained through the chest after administration of intravenous contrast. Auto Exposure Controls were utilized during the CT exam to meet ALARA standards for radiation dose reduction. DATE: May 31, 2021. COMPARISON: April 27, 2021. INDICATION: 31-year-old male, chest pain. FINDINGS: There is no identified pulmonary nodule. There is no lung mass. There is no focal airspace consolidation. There is no pneumothorax. There is no pleural effusion. The central airways are patent. The heart is not enlarged. There is no identified central pulmonary embolus. There is no identified abnormally enlarged mediastinal, hilar, or axillary lymph node meeting CT size criteria for adenopathy. Evaluation of the imaged portions of the upper abdomen is grossly unremarkable. There is no identified acute bony abnormality. There are multilevel thoracic Schmorl's nodes. IMPRESSION: CT CHEST. 1. No acute cardiopulmonary abnormality. 2. No pulmonary nodule or lung mass. Dictated by: Dictated on workstation # [id number]
== END ==
LOC: RAD FS 12:52
PROVIDERS: ATTEND Family Medicine
DX: M54.2 Cervicalgia (principal); M25.512 Pain in left shoulder; R07.9 Chest pain, unspecified
CPT/HCPCS: 71260; 72040; 73030

== ENCOUNTER 2021-06-13 20:35 | Emergency (ER) | payer OTHER ==
[~2021-06-13] VITALS: Ht 188 cm; Wt 136.0 kg
[~2021-06-13 20:35] MED LIST changes: -CATHETER FLUSH 10 ML SYR IV PRN; -HOLD METFORMIN - RECEIVED CONTRAST 20 ML VIAL IV SCH; -IOHEXOL 350 MG/ML 100 ML (OMNIPAQUE 350) VIAL IV ONE; -NS 100 ML (IVPB) BAG IV ONE
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
[2021-06-13] MEDS ORDERED: ONDANSETRON 4 MG (ZOFRAN) ORAL DISSOLVE TAB PO ONE (21:30)
[2021-06-13] MEDS ORDERED: ALPRAZolam 0.5 MG (XANAX) TAB PO SCH (21:45)
[2021-06-13 22:20] VITALS: BP 130/89
== END 2021-06-13 22:20 ==
LOC: EDUNIT# 20:35 → ER 20:37
DX: F41.9 Anxiety disorder, unspecified (principal); I10 Essential (primary) hypertension
CPT/HCPCS: 99283

== ENCOUNTER 2021-06-26 07:24 | Emergency (ER) | payer OTHER ==
[~2021-06-26] VITALS: Ht 187 cm; Wt 139.0 kg
[2021-06-26 07:37] VITALS: BP 146/98
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
== END 2021-06-26 08:27 | disposition home or self-care (01) ==
LOC: EDUNIT# 07:24 → ER 07:26
DX: J00 Acute nasopharyngitis [common cold] (principal); I10 Essential (primary) hypertension; Z87.891 Personal history of nicotine dependence; Z79.899 Other long term (current) drug therapy; Z20.822 Contact with and (suspected) exposure to COVID-19
CPT/HCPCS: 87636; 99283

== ENCOUNTER 2021-07-29 05:33 | Outpatient (CLI) | payer OTHER ==
[~2021-07-29] VITALS: Ht 188 cm; Wt 140.0 kg
[2021-07-30] MEDS ORDERED: CLON0.5T4 PO (11:35)
[2021-07-30] MEDS ORDERED: FLUT16SP22 NS (11:35)
[2021-07-30] MEDS ORDERED: BUPR-168 PO (11:35)
[2021-07-30] MEDS ORDERED: MV-M1TAB20 PO (11:35)
[2021-07-30] MEDS ORDERED: PANT40TA52 PO (11:35)
== END 2021-07-30 12:04 | disposition home or self-care (01) ==
LOC: PREOP 05:33
PROVIDERS: ATTEND Surgery
DX: Z01.818 Encounter for other preprocedural examination (principal)

== ENCOUNTER 2021-08-06 09:32 | Day surgery (SDC) | payer OTHER ==
[~2021-08-06] VITALS: Ht 188 cm; Wt 140.3 kg
[~2021-08-06 09:32] MED LIST changes: +BUPR-168 PO; +CLON0.5T4 PO; +FLUT16SP22 NS; +MV-M1TAB20 PO; +PANT40TA52 PO
[2021-08-06] MEDS ORDERED: LACTATED RINGERS 1,000 ML IV STA (09:39)
[2021-08-06 09:40] VITALS: BP 139/91
[2021-08-06] MEDS ORDERED: HURRICAINE EXT TUBE (BENZOCAINE) XX PRN (09:45)
--- NOTE | 2021-08-06 10:02 | Progress Note-Pre Operative ---
Pre-Operative Progress Note H&P Reviewed The H&P was reviewed, patient examined and no changes noted. Date Seen by Provider: Aug 06, 2021 Time Seen by Provider: 10: Date H&P Reviewed: Aug 06, 2021 Time H&P Reviewed: 10:01 Pre-Operative Diagnosis: gerd, epigastric pain ALTAGRACIA GARVIN DO Aug 06, 2021 10:02
[2021-08-06] MEDS ORDERED: PROPOFOL INJECTION 50 ML IV ONE (10:35)
--- NOTE | 2021-08-06 10:47 | Progress Note-Post Operative ---
Post-Operative Progess Note Surgeon (s)/Molding Line Operator (s) Surgeon ALTAGRACIA GARVIN DO Molding Line Operator: na Pre-Operative Diagnosis gerd, epigastric pain Post-Operative Diagnosis reactive gastropathy Procedure & Operative Findings Date of Procedure 08/06/21 Procedure Performed/Findings egd c biopsies Anesthesia Type per cotton breeder Estimated Blood Loss Estimated blood loss (mL): none Specimens/Packing Specimens Removed antrum, ge ALTAGRACIA GARVIN DO Aug 06, 2021 10:47
--- NOTE | 2021-08-06 10:49 | Discharge Inst-Simple/Standard ---
Discharge Inst-Standard Patient Instructions/Follow Up Plan of Care/Instructions/FU: 2 weeks Althea Activity as Tolerated: Yes Discharge Diet: Regular Diet ALTAGRACIA GARVIN DO Aug 06, 2021 10:49
--- NOTE | 2021-08-06 10:49 | Anesthesia-General Post-Op ---
MAC Patient Condition Mental Status/LOC: Same as Preop Cardiovascular: Satisfactory Nausea/Vomiting: Absent Respiratory: Satisfactory Pain: Controlled Complications: Absent Post Op Complications Complications None Follow Up Care/Instructions Patient Instructions None needed. Anesthesiology Discharge Order Discharge Order Patient is doing well, no complaints, stable vital signs, no apparent adverse anesthesia problems. No complications reported per nursing. AMAYA CHAVEZ CRNA Aug 06, 2021 10:49
[2021-08-06 10:50] VITALS: BP 122/75
[2021-08-06 10:56] VITALS: BP 119/75
[2021-08-06 11:15] VITALS: BP 126/77
--- NOTE | 2021-08-06 15:37 | OPERATIVE REPORT ---
DATE OF SERVICE: 08/06/2021 PREOPERATIVE DIAGNOSES: Gastroesophageal reflux disease and epigastric abdominal pain. POSTOPERATIVE DIAGNOSIS: Reactive gastropathy. PROCEDURES PERFORMED: EGD with biopsy. SURGEON: Altagracia Oh DO. ANESTHESIA: Per OPERATING ROOM SURGICAL TECHNOLOGIST. ESTIMATED BLOOD LOSS: None. COMPLICATIONS: None. INDICATIONS FOR PROCEDURE: The patient is a 31-year-old male with epigastric abdominal pain. He understands the risks and benefits of the procedures and wishes to proceed. Consent was signed in the chart. DESCRIPTION OF PROCEDURE: The patient was taken to the endoscopy suite and placed in a left lateral recumbent position. A timeout was performed. Scope was inserted in the mouth, down the esophagus, stomach, and into the duodenum without difficulty. No polyps, masses or ulcerations within the duodenum. Scope was slowly retracted back into the stomach, where it was further insufflated. A slight appearance of reactive gastropathy was present. Biopsy of the antrum was obtained. Scope was retroflexed noting no other pathology. Scope was returned to its normal position, slowly withdrawn until removed into the distal esophagus, which had no polyps, masses or ulcerations. Biopsy of the GE junction was obtained. Scope was slowly retracted back until completely removed. The patient tolerated the procedure well without any complications and taken to the recovery room in stable condition. RECOMMENDATIONS: The patient will continue on current medications. We will reevaluate him in two weeks to go over pathology. Further recommendations pending. Job ID: [id number] DocumentID: [id number] Dictated Date: 08/06/2021 10:51:07 Cinder Pitman Date: 08/06/2021 15:36:16 Dictated By: ALTAGRACIA OH DO
== END 2021-08-06 11:23 | disposition home or self-care (01) ==
LOC: ENDO 09:32
PROVIDERS: ATTEND Surgery
DX: K31.89 Other diseases of stomach and duodenum (principal); K21.9 Gastro-esophageal reflux disease without esophagitis; I10 Essential (primary) hypertension; F41.9 Anxiety disorder, unspecified; E66.9 Obesity, unspecified; Z68.39 Body mass index [BMI] 39.0-39.9, adult; Z79.899 Other long term (current) drug therapy; Z87.891 Personal history of nicotine dependence
CPT/HCPCS: 88305

== ENCOUNTER 2021-08-15 12:22 | Emergency (ER) | payer OTHER ==
[~2021-08-15] VITALS: Ht 187 cm; Wt 140.0 kg
[2021-08-15 13:00] LABS: HEMATOCRIT 48 % (40-54); HEMOGLOBIN 16.9 g/dL (13.3-17.7); MEAN CORPUSCULAR HEMOGLOBIN 30 pg (25-34); MEAN CORPUSCULAR HGB CONC 35 g/dL (32-36); MEAN CORPUSCULAR VOLUME 86 fL (80-99); WHITE BLOOD COUNT 8.1 10^3/uL (4.3-11.0)
[2021-08-15 13:01] LABS: CLARITY,URINE CLEAR; COLOR,URINE YELLOW; GLUCOSE, URINE (UA) NEGATIVE (NEGATIVE); KETONES,URINE TRACE (NEGATIVE); LEUKOCYTE ESTERASE ,URINE NEGATIVE (NEGATIVE); NITRITE,URINE NEGATIVE (NEGATIVE); PROTEIN,URINE NEGATIVE (NEGATIVE)
[2021-08-15 13:01] LABS: BASOPHILS % (AUTO) 0 % (0-10); EOSINOPHILS # (AUTO) 0.1 10^3/uL (0.0-0.3); EOSINOPHILS % (AUTO) 1 % (0-10); LYMPHOCYTES # (AUTO) 2.3 X 10^3 (1.0-4.0); LYMPHOCYTES % (AUTO) 29 % (12-44); MONOCYTES # (AUTO) 0.5 X 10^3 (0.0-1.0); MONOCYTES % (AUTO) 6 % (0-12); NEUTROPHILS # (AUTO) 5.2 X 10^3 (1.8-7.8); NEUTROPHILS % (AUTO) 64 % (42-75); PLATELET COUNT 235 10^3/uL (130-400)
[2021-08-15 13:04] LABS: INR 0.9 (0.8-1.4)
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
[2021-08-15 13:13] LABS: BACTERIA,URINE NEGATIVE /HPF; BILIRUBIN,URINE 1+ (NEGATIVE); RBC,URINE 0-2 /HPF; WBC,URINE RARE /HPF
--- NOTE | 2021-08-15 13:21 | Diagnostic Imaging Report ---
INDICATION: Dizziness, bilateral ear infections, memory loss. TECHNIQUE: Single view chest 12:51 PM. CORRELATION STUDY: 04/27/2021 FINDINGS: The heart size, mediastinal configuration and pulmonary vascularity are within normal limits. The lungs are clear with no consolidating infiltrate. Deep, right costophrenic angle incompletely imaged. However, there is no significant effusion or pneumothorax. IMPRESSION: 1. Negative for acute abnormality of the chest. Dictated by: Dictated on workstation # [id number]
[2021-08-15 13:25] LABS: FIBRIN DEGRADATION PRODUCTS 0.19 UG/ML (0.00-0.49)
[2021-08-15 13:31] LABS: BUN/CREATININE RATIO 14; CARBON DIOXIDE 24 MMOL/L (21-32); CHLORIDE 105 MMOL/L (98-107); CREATININE SERUM 0.71 MG/DL (0.60-1.30); GFR ESTIMATED 126; POTASSIUM 4.2 MMOL/L (3.6-5.0); SODIUM 140 MMOL/L (135-145)
--- NOTE | 2021-08-15 13:31 | Diagnostic Imaging Report ---
PROCEDURE: CT head wo r/o stroke. TECHNIQUE: Multiple contiguous axial images were obtained through the brain without the use of intravenous contrast. Auto Exposure Controls were utilized during the CT exam to meet ALARA standards for radiation dose reduction. INDICATION: Two months history of dizziness, now with new-onset memory loss. COMPARISON: Exam compared with head CT of 08/18/2020. FINDINGS: There is no hemorrhage, hydrocephalus, edema, mass, mass effect, or evidence for elevated pressures. Midline structures are nondisplaced. The basilar cisterns are patent. There is no sulcal effacement. There has been no change from previous exam. Orbits, paranasal sinuses, and calvarium are unremarkable. IMPRESSION: Stable normal CT head. Dictated by: Dictated on workstation # [id number]
[2021-08-15 13:32] LABS: ALANINE AMINOTRANSFERASE 33 U/L (0-55); ALBUMIN 4.6 GM/DL (3.2-4.5); ALKALINE PHOSPHATASE 124 U/L (40-136); BILIRUBIN,TOTAL 0.5 MG/DL (0.1-1.0); CALCIUM 9.4 MG/DL (8.5-10.1); GLUCOSE 96 MG/DL (70-105); TOTAL PROTEIN 7.9 GM/DL (6.4-8.2)
[2021-08-15 13:36] LABS: AMPHETAMINE SCREEN, URINE NEGATIVE (NEGATIVE); BARBITURATE SCREEN URINE NEGATIVE (NEGATIVE); BENZODIAZEPINES SCREEN URINE NEGATIVE (NEGATIVE); CANNABINOID SCREEN, URINE NEGATIVE (NEGATIVE); COCAINE SCREEN URINE NEGATIVE (NEGATIVE); METHADONE STAT NEGATIVE (NEGATIVE); METHAMPHETAMINE SCREEN URINE S NEGATIVE (NEGATIVE); OPIATE SCREEN URINE NEGATIVE (NEGATIVE); OXYCODONE STAT NEGATIVE (NEGATIVE); PROPOXYPHENE STAT NEGATIVE (NEGATIVE); TRICYCLIC ANTIDEPRESSANTS SCRE NEGATIVE (NEGATIVE)
[2021-08-15 14:35] VITALS: BP 136/72
== END 2021-08-15 14:37 | disposition home or self-care (01) ==
LOC: EDUNIT# 12:22 → ER FS 12:24
DX: F41.9 Anxiety disorder, unspecified (principal); I10 Essential (primary) hypertension
CPT/HCPCS: 36415; 70450; 71045; 80053; 80306; 81000; 84484; 85025; 85379; 85610; 85730; 93005; 93041; 99284; G0480; 80320

== ENCOUNTER 2021-08-24 14:10 | Emergency (ER) | payer OTHER ==
[~2021-08-24] VITALS: Ht 187 cm; Wt 140.0 kg
[2021-08-24 14:19] VITALS: BP 168/112
[2021-08-24] MEDS ORDERED: ALPRAZolam 0.25 MG (XANAX) TAB PO STA (14:25)
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
[2021-08-24] MEDS ORDERED: CLON0.5T4 PO (14:41)
== END 2021-08-24 14:44 | disposition home or self-care (01) ==
LOC: EDUNIT# 14:10 → ER FS 14:11
DX: F41.0 Panic disorder [episodic paroxysmal anxiety] (principal); F32.9 Major depressive disorder, single episode, unspecified
CPT/HCPCS: 99284

== ENCOUNTER 2021-09-04 11:23 | Emergency (ER) | payer OTHER ==
[~2021-09-04] VITALS: Ht 187 cm; Wt 139.0 kg
[2021-09-04] MEDS ORDERED: KETOROLAC 60 MG/2 ML VIAL IM STA (11:50)
[2021-09-04] MEDS ORDERED: ACETAMINOPHEN 500 MG TAB (TYLENOL) PO STA (11:50)
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
[2021-09-04 12:36] VITALS: BP 153/94
== END 2021-09-04 12:43 | disposition home or self-care (01) ==
LOC: EDUNIT# 11:23 → ER FS 11:24
DX: S39.012A Strain of muscle, fascia and tendon of lower back, initial encounter (principal); W17.89XA Other fall from one level to another, initial encounter
CPT/HCPCS: 72100

== ENCOUNTER → 2022-01-04 | Outpatient (CLI) | payer OTHER ==
[2022-01-04 10:52] LABS: ALBUMIN 4.2 GM/DL (3.2-4.5); BILIRUBIN,TOTAL 0.6 MG/DL (0.1-1.0); CALCIUM 9.2 MG/DL (8.5-10.1); CREATININE SERUM 0.86 MG/DL (0.60-1.30); POTASSIUM 3.8 MMOL/L (3.6-5.0)
[2022-01-04 23:03] LABS: TRIGLYCERIDES 119 MG/DL (<150); VLDL CHOLESTEROL 24 MG/DL (5-40)
[2022-01-04 23:08] LABS: CHOLESTEROL 125 MG/DL (< 200)
[2022-01-04 23:09] LABS: HDL CHOLESTEROL 33 MG/DL (40-60)
== END ==
LOC: LAB FS 09:51
PROVIDERS: ATTEND Family Medicine
DX: I10 Essential (primary) hypertension (principal); F41.9 Anxiety disorder, unspecified; K21.9 Gastro-esophageal reflux disease without esophagitis
CPT/HCPCS: 36415; 80053; 80061

== ENCOUNTER 2022-03-09 20:26 | Day surgery (SDC) | payer OTHER ==
[~2022-03-09] VITALS: Ht 187.9 cm; Wt 151.4 kg
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
[2022-03-09] MEDS ORDERED: 1/2 NS IV SOLUTION 1,000 ML IV STA (20:41)
[2022-03-09] MEDS ORDERED: KETOROLAC 30 MG/ML VIAL IVP ONE (20:45)
[2022-03-09 20:47] LABS: BASOPHILS % (AUTO) 0 % (0-10); EOSINOPHILS % (AUTO) 0 % (0-10); HEMATOCRIT 46 % (40-54); HEMOGLOBIN 16.1 g/dL (13.3-17.7); LYMPHOCYTES # (AUTO) 2.5 10^3/uL (1.0-4.0); LYMPHOCYTES % (AUTO) 19 % (12-44); MEAN CORPUSCULAR HEMOGLOBIN 30 pg (25-34); MEAN CORPUSCULAR HGB CONC 35 g/dL (32-36); MEAN CORPUSCULAR VOLUME 85 fL (80-99); MEAN PLATELET VOLUME 10.4 fL (9.0-12.2); MONOCYTES # (AUTO) 1.1 10^3/uL (0.0-1.0); MONOCYTES % (AUTO) 8 % (0-12); NEUTROPHILS # (AUTO) 9.8 10^3/uL (1.8-7.8); NEUTROPHILS % (AUTO) 73 % (42-75); PLATELET COUNT 199 10^3/uL (130-400); WHITE BLOOD COUNT 13.5 10^3/uL (4.3-11.0)
[2022-03-09 20:48] LABS: CLARITY,URINE CLEAR; GLUCOSE, URINE (UA) NEGATIVE (NEGATIVE); KETONES,URINE NEGATIVE (NEGATIVE); LEUKOCYTE ESTERASE ,URINE NEGATIVE (NEGATIVE); NITRITE,URINE NEGATIVE (NEGATIVE); PROTEIN,URINE NEGATIVE (NEGATIVE)
[2022-03-09 20:49] LABS: COLOR,URINE DARL YELLOW
[2022-03-09 20:52] LABS: BACTERIA,URINE NEGATIVE /HPF; BILIRUBIN,URINE 1+ (NEGATIVE)
[2022-03-09 20:58] LABS: AMPHETAMINE SCREEN, URINE NEGATIVE (NEGATIVE); BARBITURATE SCREEN URINE NEGATIVE (NEGATIVE); BENZODIAZEPINES SCREEN URINE NEGATIVE (NEGATIVE); CANNABINOID SCREEN, URINE NEGATIVE (NEGATIVE); COCAINE SCREEN URINE NEGATIVE (NEGATIVE); METHADONE STAT NEGATIVE (NEGATIVE); OPIATE SCREEN URINE NEGATIVE (NEGATIVE); OXYCODONE STAT NEGATIVE (NEGATIVE); PROPOXYPHENE STAT NEGATIVE (NEGATIVE); TRICYCLIC ANTIDEPRESSANTS SCRE NEGATIVE (NEGATIVE)
[2022-03-09 21:11] LABS: ALANINE AMINOTRANSFERASE 16 U/L (0-55); ALBUMIN 4.4 GM/DL (3.2-4.5); ALKALINE PHOSPHATASE 105 U/L (40-136); BILIRUBIN,TOTAL 1.3 MG/DL (0.1-1.0); BUN/CREATININE RATIO 10; CALCIUM 9.3 MG/DL (8.5-10.1); CARBON DIOXIDE 22 MMOL/L (21-32); CHLORIDE 103 MMOL/L (98-107); CREATININE SERUM 0.82 MG/DL (0.60-1.30); GFR ESTIMATED 120; GLUCOSE 102 MG/DL (70-105); POTASSIUM 3.8 MMOL/L (3.6-5.0); SODIUM 137 MMOL/L (135-145); TOTAL PROTEIN 7.6 GM/DL (6.4-8.2)
--- NOTE | 2022-03-09 21:12 | Diagnostic Imaging Report ---
INDICATION: Abdominal pain x 3 days, right flank pain, history of kidney stones. TECHNIQUE: Multiple contiguous axial images were obtained through the abdomen and pelvis without the use of intravenous contrast. Auto Exposure Controls were utilized during the CT exam to meet ALARA standards for radiation dose reduction. COMPARISON: 12/21/2016. FINDINGS: The visualized portions of the lung bases are clear. There are no pleural fluid collections. There is no free intraperitoneal air. The liver and gallbladder appear unremarkable. The spleen and adrenals and pancreas appear unremarkable. The left kidney shows a small nonocclusive stone in the lower pole calyceal region and a tiny nonocclusive stone in the upper pole. Right kidney shows a small nonocclusive stone in the lower pole. There is no hydronephrosis or ureteral stone. There is no retroperitoneal mass. There is no ascites or abscess. There is no overt bowel obstruction. In the right lower quadrant, there is extensive fat stranding about the base of the cecum and posterior pericecal fat. The base of the appendix appears mildly prominent measuring about 7 to 8 mm. There is no discrete abscess. There appears to be a punctate area of extraluminal air adjacent to this process, which may represent contained perforation. IMPRESSION: 1. Acute inflammatory changes about the base of the cecum and adjacent retroperitoneal fat, with thickening of the appendiceal root, compatible with acute appendicitis. There is a small amount of extraluminal air which may represent contained perforation. There is no discrete abscess. 2. There are small nonocclusive stones in both kidneys. Previous right ureteral stone seen on 12/21/2016 is no longer apparent. Dictated by: Dictated on workstation # [id number]
[2022-03-09] MEDS ORDERED: metroNIDAZOLE 500MG/100ML IVPB 100 ML ONE (21:29)
[2022-03-09] MEDS ORDERED: metroNIDAZOLE 500MG/100ML IVPB 100 ML IV ONE (21:30)
[2022-03-09] MEDS ORDERED: CIPROFLOXACIN IV 400MG/200ML 200 ML IV ONE ×2 (21:30→21:31)
[2022-03-09] MEDS ORDERED: morphine INJ 4 MG/ML 1 ML (VIAL/SYRINGE) IV PRN (23:45)
[2022-03-09] MEDS ORDERED: ACETAMINOPHEN 325 MG TABLET PO PRN (23:45)
[2022-03-09] MEDS ORDERED: ONDANSETRON 4 MG/2 ML (SDV) Z0FRAN IV PRN (23:45)
[2022-03-09] MEDS ORDERED: KETOROLAC 15 MG/ML VIAL IV PRN (23:45)
[2022-03-09 23:52] VITALS: BP 126/75
[2022-03-10] VITALS (11 sets, daily range): BP systolic 118–132; BP diastolic 70–86
--- NOTE | 2022-03-10 00:08 | Progress Note-Pre Operative ---
Pre-Operative Progress Note Date of Available H&P: Mar 10, 2022 Date H&P Reviewed: Mar 10, 2022 Time H&P Reviewed: 00:15 History & Physical: No changes noted Pre-Operative Diagnosis: acute appendicitis MALIK JIMENEZ MD Mar 10, 2022 00:08
[2022-03-10] MEDS ORDERED: HYDR-3817 PO (00:13)
--- NOTE | 2022-03-10 00:13 | Discharge Inst-Surgical ---
D/C Lap Instructions-BARBARA New, Converted, or Re-Newed RX: RX on Chart Follow Up Appt in 2 weeks Activity as tolerated No driving for 24 hours No driving while on pain medications Incentive Spirometry use every 2 hours while awake Regular Diet Symptoms to Report: Fever over 101 degree F, Nausea/Vomiting Infection Signs and Symptoms to report: Increased redness, Foul odor of wound, Increased drainage Bathing instructions: May shower Operative Area Clean/Dry; Keep incision clean/dry If any problems/questions: Contact your physician or go to Emergency Room MALIK JIMENEZ MD Mar 10, 2022 00:13
[2022-03-10] MEDS ORDERED: HYDROcodone/APAP 7.5 MG/325 MG (LORTAB, LORCET PLUS) TABLET PO PRN (00:15)
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
[2022-03-10] MEDS: CATHETER FLUSH 10 ML SYR IVP SCH ×2 (04:04→14:33)
[2022-03-10 06:33] LABS: BASOPHILS % (AUTO) 0 % (0-10); EOSINOPHILS # (AUTO) 0.1 10^3/uL (0.0-0.3); EOSINOPHILS % (AUTO) 0 % (0-10); HEMATOCRIT 44 % (40-54); HEMOGLOBIN 15.1 g/dL (13.3-17.7); LYMPHOCYTES # (AUTO) 1.5 10^3/uL (1.0-4.0); LYMPHOCYTES % (AUTO) 11 % (12-44); MEAN CORPUSCULAR HEMOGLOBIN 30 pg (25-34); MEAN CORPUSCULAR HGB CONC 34 g/dL (32-36); MEAN CORPUSCULAR VOLUME 86 fL (80-99); MEAN PLATELET VOLUME 11.2 fL (9.0-12.2); MONOCYTES # (AUTO) 1.2 10^3/uL (0.0-1.0); MONOCYTES % (AUTO) 9 % (0-12); NEUTROPHILS # (AUTO) 10.3 10^3/uL (1.8-7.8); NEUTROPHILS % (AUTO) 78 % (42-75); PLATELET COUNT 172 10^3/uL (130-400); WHITE BLOOD COUNT 13.2 10^3/uL (4.3-11.0)
[2022-03-10 06:46] LABS: POTASSIUM 3.5 MMOL/L (3.6-5.0)
[2022-03-10 06:47] LABS: CALCIUM 8.9 MG/DL (8.5-10.1)
[2022-03-10 06:52] LABS: CREATININE SERUM 0.84 MG/DL (0.60-1.30)
[2022-03-10] MEDS ORDERED: metroNIDAZOLE 500 MG/100 ML IVPB (PRE-MIX) IV SCH (09:30)
[2022-03-10] MEDS ORDERED: CIPROFLOXACIN 400 MG/D5W 200 ML (PRE-MIX) IV SCH (09:30)
[2022-03-10] MEDS ORDERED: LIDOCAINE/EPI 2% 1:200,00 (XYLOCAINE) 20 ML VIAL ONE (13:16)
[2022-03-10] MEDS ORDERED: LIDOCAINE/EPI 2% 1:100,00 (XYLOCAINE) 20 ML VIAL INJ ONE (13:18)
[2022-03-10] MEDS ORDERED: LACTATED RINGERS 1,000 ML IV PRN (14:00)
[2022-03-10] MEDS ORDERED: fentaNYL INJ 100 MCG/2 ML AMP ONE (14:04)
[2022-03-10] MEDS ORDERED: MIDAZOLAM 2 MG/2 ML (VERSED) VIAL ONE (14:04)
--- NOTE | 2022-03-10 14:05 | Progress Note ---
Standard Progress Note Progress Notes/Assess & Plan Date Seen by a Provider: Mar 10, 2022 Time Seen by a Provider: 12:00 Progress/Assessment & Plan PE: chest-clear, good bs bilat heart-regular ext-no LE edema, neg homans abd-soft, rlq pain with voluntary gaurding skin-warm/dry MALIK JIMENEZ MD Mar 10, 2022 14:05
[2022-03-10] MEDS ORDERED: ROCURONIUM 10 MG/ML 5 ML SYRINGE IV ONE (15:50)
[2022-03-10] MEDS ORDERED: LIDOCAINE PF 2% 5 ML (XYLOCAINE) VIAL ONE (15:50)
[2022-03-10] MEDS ORDERED: SUCCINYLCHOLINE INJ 100 MG/5 ML SYR/VIAL ONE (15:50)
[2022-03-10] MEDS ORDERED: proPOfol 200 MG/20 ML (DIPRIVAN) VIAL IV ONE (15:50)
[2022-03-10] MEDS ORDERED: ONDANSETRON 4 MG/2 ML (SDV) Z0FRAN ONE (15:50)
[2022-03-10] MEDS ORDERED: SEVOFLURANE (ULTANE) 15 ML INHAL SOLN ONE (15:50)
[2022-03-10] MEDS ORDERED: ceFAZolin INJECTION 2,000 MG ONE (15:55)
[2022-03-10] MEDS ORDERED: NEOSTIGMINE (BLOXIVERZ ) 1 MG/1ML 10 ML VIAL ONE (16:27)
[2022-03-10] MEDS ORDERED: GLYCOPYRROLATE 0.2 MG/ML (ROBINUL) 2 ML VIAL ONE (16:27)
--- NOTE | 2022-03-10 16:35 | Progress Note-Post Operative ---
Post-Operative Progess Note Surgeon (s)/Size Mixer (s) Surgeon MALIK JIMENEZ MD Size Mixer: none Pre-Operative Diagnosis acute appendicitis Post-Operative Diagnosis same Procedure & Operative Findings Date of Procedure 03/10/22 Procedure Performed/Findings laparoscopic appendectomy Anesthesia Type get Estimated Blood Loss Estimated blood loss (mL): minimal Specimens/Packing Specimens Removed appendix MALIK JIMENEZ MD Mar 10, 2022 16:35
--- NOTE | 2022-03-10 16:52 | Anesthesia-General Post-Op ---
General Patient Condition Mental Status/LOC: Same as Preop Cardiovascular: Satisfactory Nausea/Vomiting: Absent Respiratory: Satisfactory Pain: Controlled Complications: Absent Post Op Complications Complications None Follow Up Care/Instructions Patient Instructions None needed. Anesthesia/Patient Condition Patient Condition Patient is doing well, no complaints, stable vital signs, no apparent adverse anesthesia problems. No complications reported per nursing. HAWK MACEDO CRNA Mar 10, 2022 16:52
--- NOTE | 2022-03-10 20:45 | OPERATIVE REPORT ---
DATE OF SERVICE: 03/10/2022 ATTENDING PRIMARY CARE PHYSICIAN: Dr. Rosemary Del Toro. PREOPERATIVE DIAGNOSIS: Acute appendicitis. POSTOPERATIVE DIAGNOSIS: Acute appendicitis. No perforation. PROCEDURE: Laparoscopic appendectomy. SURGEON: Malik Jimenez MD. ANESTHESIA: General endotracheal. ESTIMATED BLOOD LOSS: Minimal. FINDINGS: Inflamed appendix and mesentery. No perforation. DISPOSITION: The patient tolerated the procedure well. INDICATIONS: The patient is a 32-year-old male who presented to [place] [facility] with right flank pain and right lower abdominal quadrant pain. He states that this began approximately 3 days previous and persisted and worsened over time. He also had reported some loss of appetite; however, was able to eat and drink without any nausea, no vomiting. He also did have loose bowel movement. He did not report any history of red blood per rectum nor any dark tarry stools. A CT scan was performed, which did show inflammation of the base of appendix consistent with an acute appendicitis. DESCRIPTION OF PROCEDURE: The patient was brought to the operating room, laid supine on the table. After adequate IV pain and sedative medications and general endotracheal intubation, the abdomen was prepped and draped in standard surgical fashion. A 0.5% Marcaine with epinephrine was then used to anesthetize the overlying skin in the left upper abdominal quadrant and a transverse skin incision made using 15 blade. An 0 silk suture was applied to the medial aspect of the incision for retraction and Veress needle inserted with a low opening pressure of 0 mmHg and the abdomen was then insufflated to 15 mmHg pressure. The Veress needle removed and a 5 mm XL trocar placed followed by a 5 mm 45-degree angle laparoscope visualizing the peritoneal cavity. A 4-quadrant abdominal exploration was performed. The appendix was not visualized at this time. Under direct visualization, a supraumbilical 10 mm port was placed after the skin and peritoneal lining were anesthetized using 0.5% Marcaine with epinephrine and a transverse skin incision made using a 15 blade. In a similar manner, a suprapubic 5 mm port was placed. The patient was then placed in a Trendelenburg position as well as plane right side up, left side down. The cecum as well as mesentery and omental lining had contained the appendix. This was gently dissected out with blunt dissection. Once the appendix was identified, we then proceeded with dissecting it free using electrocautery on hook instrument as well as blunt dissection. No free perforation identified as well as no abscess. Once the appendix was freed, the appendix was then retracted towards the anterior abdominal wall. The appendix and mesoappendix was then stapled and transected at the cecal base using a EDDIE 45 mm stapler with a 2.5 mm thickness load with visualization of good hemostasis. The area was then copiously irrigated and suctioned out with visualization of good hemostasis. The appendix was removed through the 10 mm port site using an EndoCatch bag. The 10 mm port site fascia and peritoneum were then closed under direct visualization using a Romulo-Areli device and 0 Vicryl suture. The abdomen was then desufflated and remaining ports removed. All skin incisions were closed using 4-0 Monocryl running subcuticular sutures. Wounds were then cleaned and covered with Dermabond. The patient tolerated the procedure well. We will start IV normal pain medication as well as a clear liquid diet. Once he is tolerating clears, has good pain control with oral pain medications, ambulating well, we will discharge him home where he will be instructed to do no heavy lifting or exertion for the next two weeks. Job ID: [id number] DocumentID: [id number] Dictated Date: 03/10/2022 16:42:49 Satellite Manager Date: 03/10/2022 20:44:26 Dictated By: MALIK JIMENEZ MD
== END 2022-03-10 20:30 | disposition home or self-care (01) ==
LOC: EDUNIT# 20:26 → ER FS 20:30 → UNDOADMOB 23:25 → SDC 23:25 → 4TH 23:25 → UNDODISOB 03-10 20:30 → SDC 03-10 20:30
PROVIDERS: ATTEND Surgery
DX: K35.80 Unspecified acute appendicitis (principal)
CPT/HCPCS: 44970; 74176; 80048; 80053; 80306; 81000; 85025; 87081; 94664; 96376; 99284; G0378; G0480; 36415; 80320

== ENCOUNTER 2022-03-13 07:14 | Inpatient (IN) | payer OTHER ==
[~2022-03-13] VITALS: Ht 188 cm; Wt 151.4 kg
[~2022-03-13 07:14] MED LIST changes: +HYDR-3817 PO
[2022-03-13] MEDS ORDERED: fentaNYL INJ 100 MCG/2 ML AMP IVP STA (07:44)
[2022-03-13] MEDS ORDERED: ONDANSETRON 4 MG/2 ML (SDV) Z0FRAN IVP ONE (07:45)
[2022-03-13] MEDS ORDERED: LACTATED RINGERS 1,000 ML IV ONE (07:45)
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
[2022-03-13 08:21] LABS: CLARITY,URINE CLEAR; COLOR,URINE YELLOW; GLUCOSE, URINE (UA) NEGATIVE (NEGATIVE); KETONES,URINE NEGATIVE (NEGATIVE); LEUKOCYTE ESTERASE ,URINE NEGATIVE (NEGATIVE); NITRITE,URINE NEGATIVE (NEGATIVE); PH,URINE 5.5 (5-9); PROTEIN,URINE TRACE (NEGATIVE)
[2022-03-13 08:27] LABS: BASOPHILS % (AUTO) 0 % (0-10); EOSINOPHILS # (AUTO) 0.1 10^3/uL (0.0-0.3); EOSINOPHILS % (AUTO) 1 % (0-10); HEMATOCRIT 46 % (40-54); HEMOGLOBIN 15.7 g/dL (13.3-17.7); LYMPHOCYTES # (AUTO) 1.5 10^3/uL (1.0-4.0); LYMPHOCYTES % (AUTO) 14 % (12-44); MEAN CORPUSCULAR HEMOGLOBIN 30 pg (25-34); MEAN CORPUSCULAR HGB CONC 34 g/dL (32-36); MEAN CORPUSCULAR VOLUME 87 fL (80-99); MEAN PLATELET VOLUME 10.6 fL (9.0-12.2); MONOCYTES # (AUTO) 0.9 10^3/uL (0.0-1.0); MONOCYTES % (AUTO) 8 % (0-12); NEUTROPHILS # (AUTO) 8.4 10^3/uL (1.8-7.8); NEUTROPHILS % (AUTO) 77 % (42-75); PLATELET COUNT 263 10^3/uL (130-400); WHITE BLOOD COUNT 10.9 10^3/uL (4.3-11.0)
[2022-03-13] MEDS ORDERED: NS 100 ML (IVPB) BAG IV ONE (08:30)
[2022-03-13] MEDS ORDERED: IOHEXOL 350 MG/ML 100 ML (OMNIPAQUE 350) VIAL IV ONE (08:30)
[2022-03-13] MEDS ORDERED: HOLD METFORMIN - RECEIVED CONTRAST 20 ML VIAL IV SCH (08:30)
[2022-03-13] MEDS ORDERED: CATHETER FLUSH 10 ML SYR IV PRN (08:30)
[2022-03-13 08:38] LABS: ALBUMIN 3.5 GM/DL (3.2-4.5); POTASSIUM 3.7 MMOL/L (3.6-5.0)
[2022-03-13 08:39] LABS: CALCIUM 9.2 MG/DL (8.5-10.1)
[2022-03-13 08:41] LABS: TOTAL PROTEIN 6.7 GM/DL (6.4-8.2)
[2022-03-13 08:42] LABS: BILIRUBIN,TOTAL 1.3 MG/DL (0.1-1.0)
[2022-03-13 08:44] LABS: CREATININE SERUM 0.76 MG/DL (0.60-1.30)
[2022-03-13 08:48] LABS: BACTERIA,URINE NEGATIVE /HPF; BILIRUBIN,URINE 2+ (NEGATIVE)
--- NOTE | 2022-03-13 08:59 | Diagnostic Imaging Report ---
PROCEDURE: CT abdomen and pelvis with contrast. TECHNIQUE: Multiple contiguous axial images were obtained through the abdomen and pelvis after administration of intravenous contrast. Auto Exposure Controls were utilized during the CT exam to meet ALARA standards for radiation dose reduction. All CT scans use one or more of the following dose optimizing techniques: automated exposure control, MA and/or KvP adjustment based on patient size and exam type or iterative reconstruction. INDICATION: Right lower quadrant pain. Comparison is made with prior CT from 03/09/2022. Imaging through lung bases does show subsegmental atelectasis in bilateral lower lobes, right greater. The liver and gallbladder are unremarkable. No biliary duct dilatation is seen. Pancreas and spleen are unremarkable. No adrenal mass is detected. Tiny nonobstructing calculus lower pole left kidney is noted. There is no hydronephrosis. Marked inflammatory changes in the right lower quadrant are again noted. There are small extraluminal gas bubbles in the right lower quadrant consistent with perforated appendicitis. Minimal fluid medial to the cecum is noted as well, measuring 4.5 x 2.2 cm. Small fluid collection is surrounded by bowel loops and cannot be percutaneously accessed. There appear to be suture lines present consistent with recent appendectomy. There are some thick-walled small bowel loops involving the distal small bowel. These bowel loops do show some moderate dilation. Developing small bowel obstruction cannot be entirely excluded. Trace free fluid in abdomen and pelvis is noted. IMPRESSION: Postoperative changes from recent appendectomy and perforated appendicitis. There continue to be significant inflammatory changes in the right lower quadrant as well as development of a very small gas and fluid collection in the right lower quadrant, likely owing to a developing abscess. In addition, there is development of a long segment of small bowel wall thickening and dilation, perhaps owing to a developing small bowel obstruction. No other significant abnormality is detected. Dictated by: Dictated on workstation # [id number]
[2022-03-13] MEDS ORDERED: PIPERACILLIN SODIUM/TAZOBACTAM 4.5 GM in NS (IVPB) 100 ML IV ONE (09:45)
[2022-03-13 10:45] VITALS: BP 125/78
[2022-03-13] MEDS ORDERED: HYDROcodone/APAP 7.5 MG/325 MG (LORTAB, LORCET PLUS) TABLET PO PRN (10:45)
[2022-03-13] MEDS ORDERED: ONDANSETRON 4 MG/2 ML (SDV) Z0FRAN IV PRN (11:15)
[2022-03-13] MEDS ORDERED: fentaNYL INJ 100 MCG/2 ML AMP IV PRN (11:15)
[2022-03-13] MEDS ORDERED: LACTATED RINGERS 1,000 ML IV SCH (11:15)
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
[2022-03-13 12:29] VITALS: BP 125/78
[2022-03-13] MEDS ORDERED: ARIP2TAB20 PO (14:35)
[2022-03-13] MEDS ORDERED: HYDR-3817 PO (14:35)
[2022-03-13] MEDS ORDERED: CHOL20002 PO (14:35)
[2022-03-13] MEDS ORDERED: MTP25TSR PO (14:35)
[2022-03-13 15:30] VITALS: BP 123/80
[2022-03-13] MEDS: NS IV 1000 ML 1,000 ML IV SCH (17:14)
[2022-03-13] MEDS: PIPERACILLIN SODIUM/TAZOBACTAM 4.5 GM in NS (IVPB) 100 ML IV SCH (17:15)
[2022-03-13 19:49] VITALS: BP 110/58
[2022-03-14 00:10] VITALS: BP 118/77
[2022-03-14] MEDS: PIPERACILLIN SODIUM/TAZOBACTAM 4.5 GM in NS (IVPB) 100 ML IV SCH ×2 (00:12→08:53)
[2022-03-14 04:00] VITALS: BP 127/75
[2022-03-14] MEDS: NS IV 1000 ML 1,000 ML IV SCH (04:46)
[2022-03-14 06:35] LABS: BASOPHILS % (AUTO) 0 % (0-10); EOSINOPHILS # (AUTO) 0.2 10^3/uL (0.0-0.3); EOSINOPHILS % (AUTO) 3 % (0-10); HEMATOCRIT 40 % (40-54); HEMOGLOBIN 13.8 g/dL (13.3-17.7); LYMPHOCYTES # (AUTO) 1.8 10^3/uL (1.0-4.0); LYMPHOCYTES % (AUTO) 24 % (12-44); MEAN CORPUSCULAR HEMOGLOBIN 30 pg (25-34); MEAN CORPUSCULAR HGB CONC 34 g/dL (32-36); MEAN CORPUSCULAR VOLUME 87 fL (80-99); MEAN PLATELET VOLUME 10.1 fL (9.0-12.2); MONOCYTES # (AUTO) 0.6 10^3/uL (0.0-1.0); MONOCYTES % (AUTO) 8 % (0-12); NEUTROPHILS # (AUTO) 4.9 10^3/uL (1.8-7.8); NEUTROPHILS % (AUTO) 65 % (42-75); PLATELET COUNT 223 10^3/uL (130-400); WHITE BLOOD COUNT 7.6 10^3/uL (4.3-11.0)
[2022-03-14 06:57] LABS: POTASSIUM 3.4 MMOL/L (3.6-5.0)
[2022-03-14 06:58] LABS: CALCIUM 8.4 MG/DL (8.5-10.1); CREATININE SERUM 0.76 MG/DL (0.60-1.30)
[2022-03-14 07:20] VITALS: BP 103/70
--- NOTE | 2022-03-14 07:56 | Physician Query Clarification ---
PQ-Link Infection to Dev/Proc Admission/Discharge Admission Date: Mar 13, 2022 at 09:32 Discharge Date: Dr. Jimenez, The medical record reflects the following clinical scenario: History/Risk Factors: s/p appendectomy 03/09/22 Clinical Findings: RLQ pain, Postoperative changes from recent appendectomy and perforated appendicitis. There continue to be significant inflammatory changes in the right lower quadrant as well as development of a very small gas and fluid collection in the right lower quadrant, likely owing to a developing abscess. Treatment: IV Piperacillin Question: Can you specify if the RLQ abscess is due to/associated with appendectomy? Please document a response in Progress Note or Discharge Summary. 1. Yes - RLQ abscess is due to/associated with appendectomy. 2. No - RLQ abscess is due to/associated with appendectomy. 3. Other, with explanation of the clinical findings. 4. Clinically undetermined, no explanation for the clinical findings. PHYSICIAN RESPONSE Specify if infection: 1 In responding to this query, please exercise your independent professional judgment. The purpose of this communication is to more accurately reflect the complexity of your patients condition. The fact that a question is asked does not imply that any particular answer is desired or expected. Thank you for your timely response to this clarification. Requestors name: [place] THIS PHYSICIAN QUERY FORM IS A PERMANENT PART OF THE MEDICAL RECORD VERONA CORNELIUS Mar 14, 2022 07:56 MALIK JIMENEZ MD Mar 16, 2022 00:51
--- NOTE | 2022-03-14 08:16 | Discharge Inst-Surgical ---
D/C Lap Instructions-KIDO Reconcile Patient Problems Problems Reviewed?: Yes New, Converted, or Re-Newed RX: RX on Chart Keep follow up appointment that is already scheduled Activity as tolerated No driving while on pain medications Incentive Spirometry use every 2 hours while awake Regular Diet Symptoms to Report: Fever over 101 degree F, Nausea/Vomiting Infection Signs and Symptoms to report: Increased redness, Foul odor of wound, Increased drainage Bathing instructions: May shower Operative Area Clean/Dry; Keep incision clean/dry If any problems/questions: Contact your physician or go to Emergency Room MARILOU AVALOS APRN Mar 14, 2022 08:16
--- NOTE | 2022-03-14 08:38 | Progress Note ---
Subjective Date Seen by a Provider: Mar 14, 2022 Time Seen by a Provider: 08:05 Subjective/Events-last exam Patient seen and reports doing well this morning. Denies any abdominal pain, Nausea, vomiting. Tolerating regular diet. Objective Exam Vital Signs Date Time Temp Pulse Resp B/P (MAP) Pulse Ox O2 Delivery O2 Flow Rate FiO2 03/14/22 07:20 36.5 70 16 103/70 (81) 94 Room Air 03/14/22 04:00 36.9 81 19 127/75 (92) 95 Room Air 03/14/22 00:10 37.3 58 16 118/77 (91) 95 Room Air 03/13/22 20:00 Room Air 03/13/22 19:49 36.8 83 19 110/58 (75) 99 Room Air 03/13/22 15:30 36.5 75 20 123/80 (94) 96 Room Air 03/13/22 12:29 36.7 68 19 125/78 (94) 96 Room Air 03/13/22 10:45 36.7 68 19 125/78 (94) 96 Room Air 03/13/22 10:38 37.0 77 16 169/99 I & O 03/14/22 07:00 Intake Total 1260 ml Output Total 600 ml Balance 660 ml Capillary Refill : General Appearance: No Apparent Distress, WD/WN Neck: Normal Inspection, Supple Respiratory: No Accessory Muscle Use, No Respiratory Distress Gastrointestinal: normal bowel sounds, soft, tenderness Extremity: Normal Inspection, Normal Range of Motion Neurologic/Psychiatric: Alert, Oriented x3 Skin: Normal Color, Warm/Dry, Other (Abdominal incisions C/D/I) Results Lab Laboratory Tests 03/14/22 06:25: White Blood Count 7.6, Red Blood Count 4.63, Hemoglobin 13.8, Hematocrit 40, Mean Corpuscular Volume 87, Mean Corpuscular Hemoglobin 30, Mean Corpuscular Hemoglobin Concent 34, Red Cell Distribution Width 12.7, Platelet Count 223, Mean Platelet Volume 10.1, Immature Granulocyte % (Auto) 1, Neutrophils (%) (Auto) 65, Lymphocytes (%) (Auto) 24, Monocytes (%) (Auto) 8, Eosinophils (%) (Auto) 3, Basophils (%) (Auto) 0, Neutrophils # (Auto) 4.9, Lymphocytes # (Auto) 1.8, Monocytes # (Auto) 0.6, Eosinophils # (Auto) 0.2, Basophils # (Auto) 0.0, Immature Granulocyte # (Auto) 0.0, Sodium Level 141, Potassium Level 3.4L, Chloride Level 105, Carbon Dioxide Level 25, Anion Gap 11, Blood Urea Nitrogen 7, Creatinine 0.76, Estimat Glomerular Filtration Rate 122, BUN/Creatinine Ratio 9, Glucose Level 110H, Calcium Level 8.4L Assessment/Plan Assessment/Plan Assess & Plan/Chief Complaint A 32-year-old male status post laparoscopic appendectomy for acute appendicitis with a developing intraabdominal abscess as well as likely ileus versus a partial small-bowel obstruction. VSS Tolerating diet Ok for DC home with abx, pain and nausea meds MARILOU AVALOS FITTING ROOM INSPECTOR Mar 14, 2022 08:38
[2022-03-14 10:05] VITALS: BP 103/70
== END 2022-03-14 10:05 | disposition home or self-care (01) | DRG 862 ==
LOC: EDUNIT# 07:14 → ER 07:16 → 4TH 09:32
PROVIDERS: ADMIT Surgery; ATTEND Surgery
DX: T81.43XA Infection following a procedure, organ and space surgical site, initial encounter (principal); K65.1 Peritoneal abscess; K56.600 Partial intestinal obstruction, unspecified as to cause; I10 Essential (primary) hypertension; F41.9 Anxiety disorder, unspecified
CPT/HCPCS: 36415; 74177; 80048; 80053; 81000; 85025; G0378

== ENCOUNTER 2023-01-03 20:43 | Emergency (ER) | payer OTHER ==
[~2023-01-03 20:43] MED LIST changes: +ARIP2TAB20 PO; +CHOL20002 PO
[2023-01-03 21:19] LABS: BASOPHILS % (AUTO) 0 % (0-10); EOSINOPHILS # (AUTO) 0.1 10^3/uL (0.0-0.3); EOSINOPHILS % (AUTO) 1 % (0-10); HEMATOCRIT 48 % (40-54); HEMOGLOBIN 16.7 g/dL (13.3-17.7); LYMPHOCYTES # (AUTO) 2.6 10^3/uL (1.0-4.0); LYMPHOCYTES % (AUTO) 27 % (12-44); MEAN CORPUSCULAR HEMOGLOBIN 29 pg (25-34); MEAN CORPUSCULAR HGB CONC 35 g/dL (32-36); MEAN CORPUSCULAR VOLUME 84 fL (80-99); MEAN PLATELET VOLUME 10.5 fL (9.0-12.2); MONOCYTES # (AUTO) 0.7 10^3/uL (0.0-1.0); MONOCYTES % (AUTO) 7 % (0-12); NEUTROPHILS # (AUTO) 6.2 10^3/uL (1.8-7.8); NEUTROPHILS % (AUTO) 64 % (42-75); PLATELET COUNT 228 10^3/uL (130-400); WHITE BLOOD COUNT 9.6 10^3/uL (4.3-11.0)
--- NOTE | 2023-01-03 21:33 | Diagnostic Imaging Report ---
INDICATION: Dizziness and headache and hypertension Frontal chest obtained at 0904 p.m. compared to 08/15/21. Heart is borderline in size. Mediastinal silhouette is unremarkable. The lungs are clear. There is no pneumothorax or pleural fluid. IMPRESSION: Borderline heart size with no acute process in the chest. Dictated by: Dictated on workstation # [id number]
[2023-01-03 21:41] LABS: ALANINE AMINOTRANSFERASE 28 U/L (0-55); ALBUMIN 4.2 GM/DL (3.2-4.5); ALKALINE PHOSPHATASE 104 U/L (40-136); BILIRUBIN,TOTAL 0.5 MG/DL (0.1-1.0); BUN/CREATININE RATIO 12; CALCIUM 9.7 MG/DL (8.5-10.1); CARBON DIOXIDE 21 MMOL/L (21-32); CHLORIDE 107 MMOL/L (98-107); CREATININE SERUM 0.86 MG/DL (0.60-1.30); GFR ESTIMATED 118; GLUCOSE 102 MG/DL (70-105); MAGNESIUM 1.8 MG/DL (1.6-2.4); POTASSIUM 3.8 MMOL/L (3.6-5.0); SODIUM 140 MMOL/L (135-145); TOTAL PROTEIN 7.3 GM/DL (6.4-8.2)
[2023-01-03 21:43] LABS: PROTHROMBIN TIME PATIENT 13.2 SEC (12.2-14.7)
[2023-01-03 22:03] LABS: BILIRUBIN,URINE NEGATIVE (NEGATIVE); CLARITY,URINE SL CLOUDY; COLOR,URINE YELLOW; GLUCOSE, URINE (UA) NEGATIVE (NEGATIVE); KETONES,URINE NEGATIVE (NEGATIVE); LEUKOCYTE ESTERASE ,URINE NEGATIVE (NEGATIVE); NITRITE,URINE NEGATIVE (NEGATIVE); PH,URINE 6.5 (5-9); PROTEIN,URINE NEGATIVE (NEGATIVE)
[2023-01-03 22:15] LABS: AMPHETAMINE SCREEN, URINE NEGATIVE (NEGATIVE); BARBITURATE SCREEN URINE NEGATIVE (NEGATIVE); BENZODIAZEPINES SCREEN URINE NEGATIVE (NEGATIVE); CANNABINOID SCREEN, URINE NEGATIVE (NEGATIVE); COCAINE SCREEN URINE NEGATIVE (NEGATIVE); METHADONE STAT NEGATIVE (NEGATIVE); OPIATE SCREEN URINE NEGATIVE (NEGATIVE); OXYCODONE STAT NEGATIVE (NEGATIVE); PROPOXYPHENE STAT NEGATIVE (NEGATIVE); TRICYCLIC ANTIDEPRESSANTS SCRE NEGATIVE (NEGATIVE)
[2023-01-03 22:42] LABS: AMORPHOUS SEDIMENT,UR FEW AMOR PHOSPHATE /LPF; BACTERIA,URINE NEGATIVE /HPF
[2023-01-03] MEDS ORDERED: hydrALAZINE (APESOLINE) 20 MG/ML VIAL IV ONE (22:45)
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
[2023-01-03] MEDS ORDERED: HYDR-3922 PO ×2 (23:17→23:36)
[2023-01-03 23:36] VITALS: BP 142/95
== END 2023-01-03 23:36 | disposition home or self-care (01) ==
LOC: EDUNIT# 20:43 → ER 20:46
DX: I10 Essential (primary) hypertension (principal); F17.200 Nicotine dependence, unspecified, uncomplicated; Z28.310 Unvaccinated for COVID-19
CPT/HCPCS: 71045; 80053; 80306; 81000; 83735; 84484; 85025; 85610; 85730; 93005; 93041; 99284; G0480; 36415; 80320